=== PATIENT | female | born 1945 | race Caucasian/White ===

== ENCOUNTER 2016-05-05 10:26 | Emergency (ER) | payer OTHER ==
[2016-05-05 10:36] VITALS: BP 135/81; PULSE 63; RESP 17; TEMP 97.9; O2SAT 94
== END 2016-05-05 11:49 | disposition left against medical advice (07) ==
DX: Z53.21 Procedure and treatment not carried out due to patient leaving prior to being seen by health care provider (principal)

== ENCOUNTER → 2016-08-24 | Outpatient (CLI) | payer OTHER | LOC: BMCIMAGING 14:53 | PROVIDERS: ATTEND Internal Medicine | DX: N26.1 Atrophy of kidney (terminal) (principal) ==

== ENCOUNTER 2017-02-08 17:38 | Inpatient (IN) | payer OTHER ==
--- NOTE | 2017-02-08 17:50 | EDPHY ---
H & P Stated Complaint: mental health eval Time Seen by Provider: 02/08/17 17:49 HPI/ROS: CHIEF COMPLAINT: Abnormal behavior HISTORY OF PRESENT ILLNESS: The patient presents to the emergency department with abnormal behavior. She has a history of bipolar mood disorder. She has typically receive medications through her primary care provider Dr. Casandra Lopez. The patient has been off of her medications for several days. According to family members she has been more agitated, slightly confused and has endorse symptoms of insomnia. The patient's has been diagnosed with Parkinson' s disease which is adding some stress to the patient's life as he is in the terminal state of his illness. The patient denies suicidal or homicidal ideation. REVIEW OF SYSTEMS: A comprehensive 10 point review of systems is otherwise negative aside from elements mentioned in the history of present illness. Source: Patient Exam Limitations: No limitations - Personal History Current Tetanus Diphtheria and Acellular Pertussis (TDAP): Yes - Medical/Surgical History Hx Asthma: No Hx Chronic Respiratory Disease: No Hx Diabetes: No Hx Cardiac Disease: No Hx Renal Disease: No Hx Cirrhosis: No Hx Alcoholism: No Hx HIV/AIDS: No Hx Splenectomy or Spleen Trauma: No Other PMH: bipolar, gallbladder surgery, ortho surgeries./laminectomy/cervical problems - Social History Smoking Status: Never smoked - Physical Exam Exam: General Appearance: Alert, no distress Eyes: Pupils equal and round no pallor or injection ENT, Mouth: Mucous membranes moist Respiratory: There are no retractions, lungs are clear to auscultation Cardiovascular: Regular rate and rhythm Gastrointestinal: Abdomen is soft and nontender, no masses, bowel sounds normal Neurological: A&O, normal motor function, normal sensory exam, normal cranial nerves Skin: Warm and dry, no rashes Musculoskeletal: Neck is supple nontender Extremities: symmetrical, full range of motion Psychiatric: Alert and oriented x3, cooperative, endorses symptoms of insomnia , denies suicidal or homicidal ideation Constitutional: Initial Vital Signs Temperature (C) 36.9 C 02/08/17 17:45 Heart Rate 67 02/08/17 17:45 Respiratory Rate 16 02/08/17 17:45 Blood Pressure 179/101 H 02/08/17 17:45 O2 Sat (%) 94 02/08/17 17:45 O2 Delivery Mode Room Air Allergies/Adverse Reactions: No Known Allergies Allergy (Verified 05/05/16 10:32) Home Medications: Medication Instructions Recorded DULoxetine 60 mg PO DAILY 02/08/17 Zolpidem Tartrate 10 mg PO HS 02/08/17 traMADol 02/08/17 Medical Decision Making ED Course/Re-evaluation: I spoke with the patient's primary care provider who reviewed the patient's psychiatric medications which include clonazepam 0.5 mg daily p.r.n., gabapentin 2400 mg at bedtime and Seroquel 50 mg once daily. The patient was [id number] of IV Ativan. The patient had screening laboratory studies and urinalysis. I spoke with the patient's primary care provider who informs me the patient called the office quite hysterical today. They attempted to arrange for a welfare check. The patient was medically cleared for psychiatric evaluation. The psychiatric sales clerk supervisor feels that she is presenting with decompensated bipolar mood disorder in the setting of a fairly significant life stressor. She is recommending inpatient psychiatric hospitalization. The patient has been placed on an M1 psychiatric hold by the mental health sales clerk supervisor. The patient will be admitted at the inpatient psychiatric unit here [facility]. I have filled out the EMTALA transfer form. She has been accepted by Dr. Alves. Differential Diagnosis: Differential diagnosis considered includes psychosis, depression, bipolar mood disorder, metabolic abnormality, medication side effect, intoxication, urinary tract infection - Data Points Laboratory Results: Laboratory Results 02/08/17 18:25 02/08/17 18:25 02/08/17 02/08/17 02/08/17 19:15 19:15 18:25 WBC RBC Hgb Hct MCV MCH MCHC RDW Plt Count MPV Neut % (Auto) Lymph % (Auto) Gooding % (Auto) Eos % (Auto) Baso % (Auto) Nucleat RBC Rel Count Absolute Neuts (auto) Absolute Lymphs (auto) Absolute Monos (auto) Absolute Eos (auto) Absolute Basos (auto) Absolute Nucleated RBC Immature Gran % Immature Gran # Sodium 141 mEq/L mEq/L (134-144) Potassium 4.1 mEq/L mEq/L (3.5-5.2) Chloride 103 mEq/L mEq/L (97-110) Carbon Dioxide 24 mEq/l mEq/l (22-31) Anion Gap 14 mEq/L mEq/L (8-16) BUN 17 mg/dL mg/dL (7-23) Creatinine 1.0 mg/dL mg/dL (0.6-1.0) Estimated GFR 55 Glucose 82 mg/dL mg/dL (70-100) Calcium 9.7 mg/dL mg/dL (8.5-10.4) Urine Color YELLOW Urine Appearance CLEAR Urine pH 6.0 (5.0-7.5) Ur Specific [place] 1.017 (1.002-1.030) Urine Protein NEGATIVE (NEGATIVE) Urine Ketones TRACE H (NEGATIVE) Urine Blood NEGATIVE (NEGATIVE) Urine Nitrate NEGATIVE (NEGATIVE) Urine Bilirubin NEGATIVE (NEGATIVE) Urine Urobilinogen 2.0 EU H EU (0.2-1.0) Ur Leukocyte Esterase NEGATIVE (NEGATIVE) Urine Glucose NEGATIVE (NEGATIVE) Urine Opiates Screen NEGATIVE (NEGATIVE) Urine Barbiturates NEGATIVE (NEGATIVE) Ur Phencyclidine Scrn NEGATIVE (NEGATIVE) Ur Amphetamine Screen NEGATIVE (NEGATIVE) U Benzodiazepines Scrn NEGATIVE (NEGATIVE) Urine Cocaine Screen NEGATIVE (NEGATIVE) U Marijuana (THC) Screen NON-NEGATIVE H (NEGATIVE) Ethyl Alcohol < 10 mg/dL mg/dL (0-10) 02/08/17 18:25 WBC 3.06 10^3/uL L 10^3/uL (3.80-9.50) RBC 4.37 10^6/uL 10^6/uL (4.18-5.33) Hgb 14.0 g/dL g/dL (12.6-16.3) Hct 40.2 % % (38.0-47.0) MCV 92.0 fL fL (81.5-99.8) MCH 32.0 pg pg (27.9-34.1) MCHC 34.8 g/dL g/dL (32.4-36.7) RDW 12.6 % % (11.5-15.2) Plt Count 232 10^3/uL 10^3/uL (150-400) MPV 9.3 fL fL (8.7-11.7) Neut % (Auto) 52.9 % % (39.3-74.2) Lymph % (Auto) 35.0 % % (15.0-45.0) Gooding % (Auto) 9.2 % % (4.5-13.0) Eos % (Auto) 1.3 % % (0.6-7.6) Baso % (Auto) 1.3 % % (0.3-1.7) Nucleat RBC Rel Count 0.0 % % (0.0-0.2) Absolute Neuts (auto) 1.62 10^3/uL L 10^3/uL (1.70-6.50) Absolute Lymphs (auto) 1.07 10^3/uL 10^3/uL (1.00-3.00) Absolute Monos (auto) 0.28 10^3/uL L 10^3/uL (0.30-0.80) Absolute Eos (auto) 0.04 10^3/uL 10^3/uL (0.03-0.40) Absolute Basos (auto) 0.04 10^3/uL 10^3/uL (0.02-0.10) Absolute Nucleated RBC 0.00 10^3/uL 10^3/uL (0-0.01) Immature Gran % 0.3 % % (0.0-1.1) Immature Gran # 0.01 10^3/uL 10^3/uL (0.00-0.10) Sodium Potassium Chloride Carbon Dioxide Anion Gap BUN Creatinine Estimated GFR Glucose Calcium Urine Color Urine Appearance Urine pH Ur Specific Bulan Urine Protein Urine Ketones Urine Blood Urine Nitrate Urine Bilirubin Urine Urobilinogen Ur Leukocyte Esterase Urine Glucose Urine Opiates Screen Urine Barbiturates Ur Phencyclidine Scrn Ur Amphetamine Screen U Benzodiazepines Scrn Urine Cocaine Screen U Marijuana (THC) Screen Ethyl Alcohol Medications Given: Discontinued Medications Sodium Chloride (Ns) 1,000 mls @ 0 mls/hr IV EDNOW ONE; Wide Open PRN Reason: Protocol Stop: 02/08/17 18:26 Last Admin: 02/08/17 18:30 Dose: 1,000 mls Lorazepam (Ativan Injection) 1 mg IVP EDNOW ONE Stop: 02/08/17 18:16 Last Admin: 02/08/17 18:30 Dose: 1 mg Departure - Departure Disposition: [facility] IP Clinical Impression: Acute psychosis, Bipolar mood disorder Condition: Fair Referrals: Casandra Lopez MD [Primary Care Provider] - As per Instructions
[2017-02-08] MEDS ORDERED: LORazepam 2 MG/ML INJ IVP ONE (18:15)
[2017-02-08] MEDS ORDERED: NS 1,000 ML IV ONE (18:25)
[2017-02-08 18:38] LABS: PLATELET COUNT 232 10^3/uL (150-400)
[2017-02-09] MEDS ORDERED: LORazepam 0.5 MG TAB PO PRN (02:00)
[2017-02-09] MEDS ORDERED: ACETAMINOPHEN 325 MG TAB PO PRN (02:00)
[2017-02-09] MEDS ORDERED: OLANZapine DISINTEGR 5 MG TAB PO PRN (02:00)
[2017-02-09] MEDS ORDERED: MAGNESIUM HYDROXIDE 30 ML UDCUP PO PRN (02:00)
[2017-02-09] MEDS ORDERED: MAG HYDROX/AL HYDROX/SIMETH 30 ML UDCUP PO PRN (02:00)
[2017-02-09] MEDS ORDERED: NICOTINE POLACRILEX 2 MG GUM B PRN (02:00)
[2017-02-09] MEDS ORDERED: LORazepam 1 MG TAB PO PRN (12:49)
[2017-02-09] MEDS: FOLIC ACID 1 MG TAB PO SCH (13:24)
[2017-02-09] MEDS: MULTIVITAMINS 1 EACH TAB PO SCH (13:24)
[2017-02-09] MEDS: THIAMINE HCL 100 MG TAB PO SCH (13:24)
--- NOTE | 2017-02-09 15:13 | BCON ---
[f rep st] BEHAVIORAL HEALTH CONSULTATION INTERNAL MEDICINE CONSULT DATE OF CONSULTATION: 02/09/2017 REFERRING PHYSICIAN: Juli Alves MD REASON FOR REFERRAL: Medical clearance for inpatient behavioral health stay. HISTORY OF PRESENT ILLNESS: This patient came to the emergency department with family with abnormal behavior. Per family, she had been more agitated, slightly confused, and had insomnia. She was evaluated by the mental health team and was admitted for further psychiatric care. She currently is without any acute complaints. She explains a history of left foot surgeries beginning with a bunionectomy and subsequently she had some kind of tendon release which has left her with a footdrop. She had been very active and used to be a runner, and cannot do that anymore. Additionally, she is stressed with caregiving for her , who has late stage Parkinson disease. PAST MEDICAL HISTORY: 1. Cholecystectomy. 2. Multiple uterine or cervical surgeries. 3. Left foot surgery for bunion and for complications of the initial surgery. 4. Lumbar laminectomy. 5. Depression. 6. Right wrist fracture, status post ORIF. 7. Seizure. 8. Syncope. MEDICATIONS: Prior to admission: 1. Zolpidem. 2. Tramadol. 3. Duloxetine. 4. Gabapentin. 5. Levothyroxine. 6. Quetiapine. ALLERGIES: There are no known drug allergies. SOCIAL HISTORY: She is . She lives with her . She is a nonsmoker. 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 FAMILY HISTORY: Noncontributory. REVIEW OF SYSTEMS: Other than as in HPI, a 10-point review of systems was performed and was negative. PHYSICAL EXAMINATION: VITAL SIGNS: Blood pressure is 102/55, heart rate is 67 , respiratory rate is 15, oxygen saturation is 95% on room air, temperature is 36.8 degrees centigrade. Her weight is 61.2 kg for a body mass index of 21.1. GENERAL: This is a well-nourished, well-developed thin woman, appears older than her chronologic age, cooperative, and in no acute distress. HEENT: Extraocular movements are intact. Pupils are equal, round, reactive to light. Mucous membranes are moist. Dentition is in good condition. NECK: Supple. HEART: Regular rate and rhythm with no murmurs, rubs, or gallops. LUNGS: Clear to auscultation bilaterally. ABDOMEN: Benign. EXTREMITIES: There is no cyanosis, clubbing, or edema. Her left foot exhibits lack of dorsiflexion of the great toe, and she has old healed surgical incision over the 1st metatarsal. NEUROLOGIC: She is alert and oriented x3. She is markedly hypophonic. There is no focal weakness. Sensation is intact to light touch. There is no bradykinesia or tremor. Gait is within normal limits. LABORATORY STUDIES: Drawn in the emergency department: CBC showed a somewhat low white blood cell count with a slight deficit to absolute neutrophils and absolute monocytes; otherwise, CBC was within normal limits. Serum chemistry revealed normal renal function and electrolytes. Liver function tests revealed a slightly elevated AST at 47, ALT was normal. TSH was normal at 4.46. Urinalysis was positive for ketones, and urobilinogen. Toxicology screen in the serum was negative for ethyl alcohol, and in the urine was non-negative for marijuana but negative for other substances of abuse. ASSESSMENT/RECOMMENDATIONS: 1. Mental health issues, pending further evaluation and management per Psychiatry and the mental health team. 2. Falls and left footdrop. Unclear what can be done for her. She reports that she was getting outpatient physical therapy with history of right wrist fracture. The wrist fracture raises question of osteoporosis in a thin, elderly woman; however, she has had a bone density survey done in 2014 which ruled out osteoporosis. Discussed the possibility of getting physical therapy regarding falls while she is in the inpatient behavioral health unit and she declined the offer, and hopes to be discharged in just a few days. 3. Leukopenia, unclear etiology. This is a mild deficit. She is not at increased infectious risk. The etiology is unclear. With urinary ketones, one might wonder if she has had some nutritional risk. However, she has not had weight loss. Advise follow up with primary care after discharge. 4. She was quite hypophonic and reticent to answer some questions regarding her medical and surgical history. Would consider further discussion including regarding the indications for medications, particularly baclofen and gabapentin should her psychiatric state improve, and and if she were more amenable to further conversation. I see no medical contraindications to this patient's continued stay in the inpatient behavioral health unit or to any psychiatric medications or procedures. Thank you very much for including me in the care of this patient. Please do not hesitate to contact me or the hospitalist service should there be need for further medical evaluation. /[id number]/MODL MTDD
[2017-02-09] MEDS: GABAPENTIN 300 MG CAP PO SCH ×2 (15:28→19:10)
--- NOTE | 2017-02-09 17:08 | BAPA ---
[f rep st] ADMISSION PSYCHIATRIC ASSESSMENT IDENTIFICATION: This is a 71-year-old white female who lives with her . Her apparently is disabled by Parkinson disease. The patient' s son Blanco lives in the [place] area. The patient is not currently in any outpatient mental health treatment. CHIEF COMPLAINT: "I slept better last night." "I didn't sleep or eat for a week " HISTORY OF PRESENT ILLNESS: The patient is a poor historian, with tangential and rambling speech and loose associations. She makes odd statements about her hospitalization as related to her granddaughter visiting but is unable to explain where her granddaughter is and later reports her granddaughter is in [place], and then reports that the granddaughter was visiting [place]. She then reports that she had been drinking alcohol, 3-4 drinks a night, and been using cannabis. She also reports that she wanted to go hiking Sunday night in a snowstorm, to climb a mountain, and that led her son to take her to the emergency department. She reports she has not slept or eaten anything for a week. However, after getting IV lorazepam in the emergency room, and a PO dose of lorazepam on the unit last night, she did sleep about 5 hours. She denies any thoughts to hurt herself or others. She denies hallucinations. She denies paranoia. She is unable to explain the names or dosages of her medications, but after further structured questioning, is able to report that she may or may not be prescribed several medications, including duloxetine, zolpidem, clonazepam, gabapentin, baclofen, Synthroid, trazodone, and Seroquel. She is unable to explain the dosages or frequencies of these medications. The patient is unable to explain why she has not been eating. She endorses anxiety, irritability, agitation, racing thoughts, and reports her current mood is depressed. She reports that she is having difficulty taking care of her and difficulty managing a home care agency that is supposed to help with him. Per the records from the emergency department, the patient was brought to the emergency room by her son, and then the patient was admitted on M1 hold, for grave disability, to the inpatient unit. Per the report, the patient has been acting agitated, disorganized, irritable. I reviewed the patient's recent behavior with the patient's son. The patient signed a release of information for me to talk to him. His phone number is [phone]. The patient's son reports that the patient went on a trip with her sister approximately a week and a half ago. During that trip, the patient's sister reportedly contacted the patient's son, reporting that the patient was having erratic and disorganized behavior, was agitated and verbally abusive to people, and acting strange. The patient's son went to visit the patient per to taking her to the ER. The patient apparently had a coat on, and boots on, and reported that she was going to go hiking at the [facility]. This was in the middle of the night during a snowstorm. The patient also appeared disorganized and bizarre to her son, who took her to the emergency room. The patient's son is in agreement that the patient is gravely disabled, and not at her baseline, and is not functioning appropriately, and is not able to care for her , who is disabled. The patients son reports he is caring for the patients and will remove a gun from their house. PAST PSYCHIATRIC HISTORY: The patient apparently had a psychiatric hospitalization for depression and alcohol abuse at [facility] many years ago. I am unable to obtain or access these records at this time. The patient denies any past suicide attempts or violence toward others. She denies any current outpatient mental health treatment. She reports possibly getting duloxetine, zolpidem, clonazepam, gabapentin, Seroquel and trazodone from her primary care provider but was unable to explain the dosages or frequencies or recent use. The patient reports a history of alcoholism during her 20s, 30s, and 40s. She reports past residential substance abuse treatment. She denies ever having alcohol detoxification or ever having delirium tremens or withdrawal seizures. She reports that she has been drinking alcohol 3-4 drinks nightly and using cannabis. PAST MEDICAL HISTORY: The patient is a poor historian but reports past foot surgery with chronic foot pain and nerve damage and muscle spasms in her foot. The patient reports chronic nerve pain in her foot as well, and possible thyroid disease. She denies any traumatic brain injuries or seizures. Per the records, the patient has a history of a lumbar laminectomy, hypothyroidism, and a cholecystectomy. ALLERGIES: No known drug allergies. FAMILY HISTORY: She reports her mother had bipolar disorder and took [place] and had asthma, and her father was an alcoholic. The patient's son committed suicide in 2004, jumping off a sudheer. SOCIAL HISTORY: She reports that she was raised by her parents. She reports her father was verbally abusive to her and her mother while abusing alcohol. She denies physical or sexual abuse during her childhood. 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 She is . Her is disabled by Parkinson disease. Her son lives in the [facility] and is supportive. She has a 7-year-old granddaughter that lives in [place]. She reports her other son committed suicide in 2004. LABORATORY DATA: White blood cell count 3.0, hemoglobin 14, platelet 232. Basic metabolic panel was normal. UA showed trace ketones, consistent with poor nutrition, and was positive for urobilinogen. Her urine tox screen was positive for cannabis only and no alcohol. PHYSICAL EXAMINATION: VITAL SIGNS: Blood pressure 102/55, heart rate 67, respiratory rate 15, pulse ox 95%. Temperature afebrile. GENERAL: She is alert white female who walks with a limp slowly; she appears disheveled. She appears internally preoccupied. No tremors or abnormal movements. She is dysphoric, tearful, crying at times. Other times she is irritable, angry and yelling. Her voice initially is soft, with few words. Later it is loud and rapid. She describes her mood as "better", but her affect is labile and agitated. Her thoughts are tangential with loose associations and a poverty of detail, poverty of content. Her memory is impaired or poor, with little information. Her insight is poor. Her judgment is impaired. She denies suicidal or violent thoughts, however. She denies auditory hallucinations or paranoia. ASSESSMENT: Bipolar disorder type 1, most recent episode depressed with mixed/manic features. Probable alcohol use disorder, severe. Cannabis use disorder, mild. The overall assessment is this patient has a history of bipolar disorder and has had mixed depressive and manic symptoms. It is not clear if she has consistently been taking psychiatric medications or not, but she has not been receiving outpatient mental health treatment and may have been taking duloxetine in addition to Seroquel, gabapentin, zolpidem, and clonazepam prior to admission. The patient also has been drinking alcohol again. The patient appears gravely disabled, as that she has had impulsive and disorganized behavior in the community, has had impulsive verbal abuse of her sister, and had bizarre ideas to go hiking in a snowstorm to a sudheer, where apparently her son had committed suicide 12 years ago. The patient appears disorganized, is a poor historian. Does not appear to be able to take care of herself or her and reports she hasn't eaten in a week. PLAN: 1. Restart Seroquel at 50 mg p.o. q.h.s. for bipolar disorder; will not restart Duloxetine due to recent severe insomnia and agitation. 2. Restart gabapentin 300 mg p.o. t.i.d. for chronic pain in her foot. 3. Restart baclofen 10 mg p.o. q.h.s. p.r.n. for muscle spasms in her foot. 4. Restart Synthroid 50 mcg daily for history of hypothyroidism. 5. The patient is on a mental health hold. We will file a short-term certification as the patient is unwilling to stay in the hospital on a voluntary basis and appears impulsive and disorganized. 6. We will monitor the patient's p.o. intake on the unit, as she reportedly had not been eating in a week. 7. We will put the patient on a CIWA protocol for either alcohol or benzodiazepine withdrawal, with p.r.n. Ativan 1 mg every 4 hours as needed for CIWA score over 11. Will consider scheduled benzodiazepine if having symptoms of withdrawal over the next 24 hours. 8. Ordered thiamine, folic acid, and multivitamin. 9. Monitor the patient's impulse control behavior, behavior, and judgment on the unit. 10. Ordered olanzapine 5 mg p.o. q.6 hours p.r.n. for severe agitation while on the unit. ADDENDUM: The patient's liver function tests show an AST of 47, ALT 50, and she had a TSH of 4.4. /[id number]/MODL MTDD
[2017-02-09] MEDS: QUEtiapine FUMARATE 50 MG TAB PO SCH (19:10)
[2017-02-09] MEDS: OLANZapine DISINTEGR 5 MG TAB PO PRN (20:37)
[2017-02-10] MEDS: THIAMINE HCL 100 MG TAB PO SCH (09:23)
[2017-02-10] MEDS: FOLIC ACID 1 MG TAB PO SCH (09:24)
[2017-02-10] MEDS: GABAPENTIN 300 MG CAP PO SCH ×3 (09:24→20:46)
[2017-02-10] MEDS: LEVOTHYROXINE 50 MCG TAB PO SCH (09:24)
[2017-02-10] MEDS: MULTIVITAMINS 1 EACH TAB PO SCH (09:24)
--- NOTE | 2017-02-10 13:49 | SOAPPROG ---
SOAP Progress Note Assessment/Plan: Assessment: 71 yo female with h/o bipolar do and alcohol dependence. 02/10/17 13:45 1. Continue on CIWA. Pt scored zero yesterday and 5 this AM, mostly for anxiety. 2. Pt on STC Subjective: Met with patient, reviewed chart and d/w staff. Patient is very frustrated with being in hospital. She says, "I have to take care of my dying ." Patient says, "I'm not doing any better here." She says, "I'm under incredible stress" and "I don't like talking to psychiatrists." She complains that "I"m much older than everybody else here" and feels no one here can "help me." Patient did sleep 7.5 hrs last night, and demonstrates no signs or symptoms of vita or psychosis. She denies any sxs of alcohol or benzo w/d. She denies any SI/HI. Objective: Vital Signs Temp Pulse Resp BP Pulse Ox 36.4 C 86 16 136/87 H 94 02/10/17 05:21 02/10/17 11:04 02/10/17 11:04 02/10/17 11:04 02/10/17 11:04 MSE: Mood: "Stressed" Affect: Depressed, flat TP: Goal-directed TC: Denies any SI/HI, no AH/VH Insight/Judgment: Poor - Time Spent With Patient Time Spent With Patient: 20" - Pending Discharge Pending Discharge Within 24 Hours: No Pending Discharge Within 48 Hours: No ICD10 Worksheet Patient Problems: Problems Problem Status Onset Acute psychosis Acute Alcohol dependence Acute Bipolar mood disorder Acute - ICD10 Problem Qualifiers (1) Alcohol dependence
[2017-02-10] MEDS ORDERED: chlordiazePOXIDE 25 MG CAP PO PRN (13:51)
[2017-02-10] MEDS ORDERED: PROMETHAZINE HCL 25 MG SUPPR PR PRN (13:51)
[2017-02-10] MEDS ORDERED: PROMETHAZINE HCL 25 MG TAB PO PRN (13:51)
[2017-02-10] MEDS: QUEtiapine FUMARATE 50 MG TAB PO SCH (20:46)
[2017-02-11] MEDS: OLANZapine DISINTEGR 5 MG TAB PO PRN ×2 (04:31→22:34)
[2017-02-11] MEDS: IBUPROFEN 200 MG TAB PO PRN ×2 (04:31→22:34)
[2017-02-11] MEDS: THIAMINE HCL 100 MG TAB PO SCH (10:07)
[2017-02-11] MEDS: LEVOTHYROXINE 50 MCG TAB PO SCH (10:07)
[2017-02-11] MEDS: FOLIC ACID 1 MG TAB PO SCH (10:07)
[2017-02-11] MEDS: GABAPENTIN 300 MG CAP PO SCH ×3 (10:07→20:20)
[2017-02-11] MEDS: MULTIVITAMINS 1 EACH TAB PO SCH (10:07)
--- NOTE | 2017-02-11 13:03 | SOAPPROG ---
SOAP Progress Note Assessment/Plan: Assessment: 71 yo female with h/o bipolar do and alcohol dependence. 02/10/17 13:45 1. Continue on CIWA. Pt scored zero yesterday and 5 this AM, mostly for anxiety. 2. Pt on STC 02/11/17 13:00 1. Patient scored 2 on CIWA, but presents with confusion and less coherent and organized today. This raises concern about ETOH/benzo w/d, especially with her persistently elevated BP (187/87 most recent). 2. Will order Librium 25mg Q4h x 4 doses 3. Continue to monitor with CIWA and give additional Librium as needed per CIWA protocol. 4. Will order Clonidine 0.1mg ONCE now and PRN for SBP > 160, or DBP > 100. Subjective: Met with patient and d/w staff. Patient is lying in bed reading a book. She says she is "not feeling good" today, but when MD asks why, she says, "I'm not sure." Patient appears to have word finding problems and is not as organized or coherent as yesterday. When MD asks about the book she is reading, patient says it's about "colors and painting and philosophy." Then she says, "it's about everything and isn't everything about everything." Her CIWA score was 2 this AM , patient denies OSULLIVAN, no diaphoresis, no tremors, no AH/VH or tactile hallucinations. However, her BP has been steadily rising all day, most recent was 187/87. MD is concerned about acute alcohol and/or benzo w/d. Will treat for BP and give 4 doses of Librium in addition to CIWA protocol. It's likely the AMS is related to w/d and will resolve with tx. In this case, patient's odd and erratic behaviors witness by son and daughter this week may be due to THC and ETOH/benzo use rather than bipolar, thought it's still possible both are responsible. Patient denies any SI/HI, no AH/VH. Objective: Vital Signs Temp Pulse Resp BP Pulse Ox 37 C 60 18 187/87 H 95 02/10/17 19:50 02/11/17 12:00 02/11/17 06:03 02/11/17 12:00 02/11/17 12:00 MSE: Affect: Flat Mood: "Not good" TP: Confused, disorganized, nonsensical at times ("everything is about everything") TC: Denies any SI/HI, no AH/VH/TH, no other psychotic sxs, no delusions or grandiosity Insight/Judgement: Poor - Time Spent With Patient Time Spent With Patient: 20" - Pending Discharge Pending Discharge Within 24 Hours: No Pending Discharge Within 48 Hours: No ICD10 Worksheet Patient Problems: Problems Problem Status Onset Acute psychosis Acute Alcohol dependence Acute Bipolar mood disorder Acute - ICD10 Problem Qualifiers (1) Alcohol dependence
[2017-02-11] MEDS: chlordiazePOXIDE 25 MG CAP PO SCH ×3 (13:14→20:19)
[2017-02-11] MEDS: QUEtiapine FUMARATE 50 MG TAB PO SCH (20:20)
[2017-02-11] MEDS ORDERED: ZOLPIDEM TARTRATE 5 MG TAB PO ONE (23:30)
[2017-02-12] MEDS: chlordiazePOXIDE 25 MG CAP PO SCH ×3 (00:06→10:07)
[2017-02-12] MEDS: BACLOFEN 10 MG TAB PO PRN (03:43)
[2017-02-12] MEDS: FOLIC ACID 1 MG TAB PO SCH (07:42)
[2017-02-12] MEDS: MULTIVITAMINS 1 EACH TAB PO SCH (07:42)
[2017-02-12] MEDS: THIAMINE HCL 100 MG TAB PO SCH (07:43)
[2017-02-12] MEDS: GABAPENTIN 300 MG CAP PO SCH ×3 (10:06→20:33)
[2017-02-12] MEDS: LEVOTHYROXINE 50 MCG TAB PO SCH (10:06)
[2017-02-12] MEDS ORDERED: QUEtiapine FUMARATE 50 MG TAB PO PRN (13:17)
[2017-02-12] MEDS ORDERED: QUEtiapine FUMARATE 50 MG TAB PO SCH (13:18)
--- NOTE | 2017-02-12 13:28 | SOAPPROG ---
SOAP Progress Note Assessment/Plan: Assessment: Bipolar Disorder I depressed severe with mixed/manic features Alcohol Use Disorder severe Cannabis Use Disorder mild Alcohol Withdrawal Patient had mixed manic and depressive symptoms over weekend along with confusion and hypertension concerning for alcohol withdrawal. Patient has improved BP today compared to yesterday after receiving Librium 25mg four times. Patient is a much better historian than 02/09/17 but has some residual disorganization Plan: Thiamine, Folic Acid Synthroid for history of hypothyroidism PRN ibuprofen, PRN HS baclofen for foot pain and muscle spasms Continue Gabapentin 300mg TID for chronic foot pain Schedule Lorazepam 0.5mg TID for alcohol withdrawal Start Lorazepam 0.5mg [id number] PRN anxiety Increase Seroquel 100mg QHS for bipolar depression Start Seroquel 50mg [id number] PRN agitation Monitor BP/Vitals Qshift Monitor PO intake, behavior, judgment, cognition 02/12/17 13:31 Subjective: "I am not used to this" Patient is a poor historian due to rambling, tangential speech. Reports she started drinking alcohol again in May due to insomnia. Reports she was taking Seroquel and Duloxetine, unknown doses from PCP after a former psychiatric retired along with Ambien. Unable to explain how much she was drinking prior to admission or how much cannabis she was using. Endorses mood swings and irritability and racing thoughts and difficulty falling asleep at night. Denies visual or auditory hypersensitivity or nausea or paranoia or severe anxiety today. Reports she wants to discharge 'so I can play with my dog.' Unable to explain events leading to hospitalization. Objective: Vital Signs Temp Pulse Resp BP Pulse Ox 36.3 C 64 14 127/73 H 97 02/12/17 12:00 02/12/17 12:00 02/12/17 12:00 02/12/17 12:00 02/12/17 12:00 Alert WF, walks slowly. Appears internally preoccupied at times. Speech soft, RRR but rambling. Thoughts tangential with occasional loose association. Denies SI or HI or AH. Mood 'alright' Affect labile - dysphoric and tearful at times, later euphoric and expansive and laughing. No fixed delusions but poor insight. Memory: reduced regarding recent events. on SLUMS test. Judgment questionable. Staff reports over weekend patient had decreased sleep, disorganized behavior; ate 50-75-100% of meals, paranoid statements, was attempting to grab other patients with pressured speech and provocative and hypersexual behavior, was irritable and briefly yelling when redirected. Patient given four doses of Librium 25mg over past 24 hours, after having severe HTN and disorganization yesterday AM. - Time Spent With Patient Time Spent With Patient: 30min - Pending Discharge Pending Discharge Within 24 Hours: No Pending Discharge Within 48 Hours: No ICD10 Worksheet Patient Problems: Problems Problem Status Onset Acute psychosis Acute Alcohol dependence Acute Bipolar mood disorder Acute
[2017-02-12] MEDS: LORazepam 0.5 MG TAB PO SCH ×2 (16:32→20:33)
[2017-02-13] MEDS: LORazepam 0.5 MG TAB PO PRN ×2 (01:21→21:58)
[2017-02-13] MEDS: GABAPENTIN 300 MG CAP PO SCH ×3 (06:51→20:40)
[2017-02-13] MEDS: MULTIVITAMINS 1 EACH TAB PO SCH (08:37)
[2017-02-13] MEDS: LORazepam 0.5 MG TAB PO SCH ×3 (08:37→20:40)
[2017-02-13] MEDS: THIAMINE HCL 100 MG TAB PO SCH (08:37)
[2017-02-13] MEDS: FOLIC ACID 1 MG TAB PO SCH (08:37)
--- NOTE | 2017-02-13 09:21 | SOAPPROG ---
SOAP Progress Note Assessment/Plan: Assessment: Bipolar Disorder I depressed severe with mixed/manic features Alcohol Use Disorder severe Cannabis Use Disorder mild Alcohol Withdrawal Patient has improved cognition and BP after starting scheduled benzodiazepine but has variable PO intake. Patient has reduced sleep, tangential thinking, and some mood lability but denies dangerous thoughts. Plan: Thiamine, Folic Acid Synthroid for history of hypothyroidism PRN ibuprofen, PRN HS baclofen for foot pain and muscle spasms Continue Gabapentin 300mg TID for chronic foot pain Continue Lorazepam 0.5mg TID for alcohol withdrawal Discontinue CIWA, check vitals TID Continue Lorazepam 0.5mg [id number] PRN anxiety Provided education about bipolar disorder Increase Seroquel 150mg QHS for bipolar disorder Monitor PO intake, behavior, judgment, cognition Check AM BMP, Ca+, Mag, PO4, HgbA1c 02/13/17 09:18 02/13/17 09:24 Subjective: "I'm alright" Patient reports maybe sleeping 5-6 hours last night. Unable to explain why she was admitted but reports wanting to be discharged in order to be with her . Later reports having multiple daily panic attacks due being overwhelmed with caregiver responsibilities for prior to admit. Endorses having disorganized thinking prior to admit. Denies severe anxiety today, denies nausea or tremors but reports some hypersensitivity to light. Reports she is willing to get MH treatment after discharge. 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 Objective: Vital Signs Temp Pulse Resp BP Pulse Ox 36.6 C 50 L 14 156/70 H 94 02/13/17 04:00 02/13/17 04:00 02/13/17 04:00 02/13/17 04:00 02/13/17 04:00 Alert WF, ambulatory slowly without tremors but mild limping. Speech soft, rapid at times. Mood 'alright' affect euphoric, briefly irritable. Thoughts tangential but mostly organized. Denies SI or HI or AH. Cognition 5/5 orientation, normal clockdrawing. Insight limited/poor. Judgment questionable. Glucometer of 230 was charted on patient incorrectly. Staff report patient slept 5-6 hours, has been labile and irritable at times; ate 25% of meals yesterday. - Time Spent With Patient Time Spent With Patient: 20 - Pending Discharge Pending Discharge Within 24 Hours: No Pending Discharge Within 48 Hours: No ICD10 Worksheet Patient Problems: Problems Problem Status Onset Acute psychosis Acute Alcohol dependence Acute Alcohol withdrawal Acute Bipolar mood disorder Acute
[2017-02-13] MEDS ORDERED: QUEtiapine FUMARATE 50 MG TAB PO SCH (09:28)
[2017-02-13] MEDS: LEVOTHYROXINE 50 MCG TAB PO SCH ×2 (10:19→10:53)
[2017-02-13] MEDS: IBUPROFEN 200 MG TAB PO PRN ×2 (10:53→20:42)
[2017-02-14] MEDS: GABAPENTIN 300 MG CAP PO SCH ×3 (07:51→20:33)
[2017-02-14] MEDS: LORazepam 0.5 MG TAB PO SCH ×2 (07:51→20:33)
[2017-02-14] MEDS: FOLIC ACID 1 MG TAB PO SCH (07:51)
[2017-02-14] MEDS: THIAMINE HCL 100 MG TAB PO SCH (07:51)
[2017-02-14] MEDS: MULTIVITAMINS 1 EACH TAB PO SCH (07:51)
[2017-02-14] MEDS: LEVOTHYROXINE 50 MCG TAB PO SCH (11:00)
[2017-02-14] MEDS ORDERED: QUEtiapine FUMARATE 50 MG TAB PO SCH (11:04)
--- NOTE | 2017-02-14 11:08 | SOAPPROG ---
SOAP Progress Note Assessment/Plan: Assessment: Bipolar Disorder I depressed severe with mixed/manic features Alcohol Use Disorder severe Cannabis Use Disorder mild Alcohol Withdrawal Patient was admitted on M-1 hold for disorganization and mixed mood symptoms Patient had mixed mood symptoms yesterday with some inappropriate behavior and PRN medication use. Patient this AM has mild mood symptoms but denies thoughts to hurt self or others Patient has improved blood pressure and cognition and improved PO intake and improved vital signs. Plan: Continue Thiamine, Folic Acid Continue Synthroid for history of hypothyroidism Continue PRN ibuprofen, PRN HS baclofen for foot pain and muscle spasms Continue Gabapentin 300mg TID for chronic foot pain Reduce Lorazepam 0.5mg BID for alcohol withdrawal, taper for 3 days then stop Continue Lorazepam 0.5mg [id number] PRN anxiety Start Naltrexone 25mg PO QHS for alcohol use disorder. Handout given to patient. Reviewed having a bracelet or wallet card, naltrexone blockade of opioid pain medications including Tramadol, and risk of nausea and hepatitis, and importance of having LFTs rechecked in one month Provided education about bipolar disorder Increase Seroquel 200mg QHS for bipolar disorder OT evaluation to assess thought organization, possible discharge tomorrow if mood/behavior stable 02/14/17 11:11 Subjective: Patient reports feeling upset with the way other people are talking and acting, is fearful a patient that was discharged lived next door to her, and reports feeling anxiety and overwhelmed at times. Reports improved sleep and willing to take Seroquel as a mood stabilizer after discharge. Reports chronic alcohol use prior to admit. Reports she wants to be discharged to be with her but reports feeling overwhelmed with caregiver responsibilities. Denies any violent or suicidal thoughts. Objective: Vital Signs Temp Pulse Resp BP Pulse Ox 36.7 C 62 12 108/72 93 02/14/17 06:20 02/14/17 06:20 02/14/17 06:20 02/14/17 06:20 02/14/17 06:20 Laboratory Results 02/14/17 06:10 Alert WF. Cooperative. Labile affect - tearful and dysphoric at times, other times smiling and explansive. Speech soft RRR. Thoughts organized but tangential at times. Denies SI or HI. Denies AH. Limited insight. Appropriate judgment. Staff report patient slept 8 hours but had Seroquel 50mg PRN yesterday for agitation and irritability and possible paranoia, and Ativan 1mg at 22:00 last night for anxiety and insomnia. Patient ate 50-75% of meals. Staff report patient had hypersexual statements yesterday and required redirection twice from approaching a male staff. BMP, HgbA1c WNL - Time Spent With Patient Time Spent With Patient: 20 - Pending Discharge Pending Discharge Within 24 Hours: Yes Pending Discharge Within 48 Hours: No Pending Discharge Date: 02/15/17 Pending Discharge Time: 11:00 ICD10 Worksheet Patient Problems: Problems Problem Status Onset Alcohol dependence Acute Alcohol withdrawal Acute Bipolar mood disorder Acute Hypothyroidism Acute Neuropathy Acute
[2017-02-14] MEDS: LORazepam 0.5 MG TAB PO PRN (15:07)
[2017-02-14] MEDS ORDERED: NALTREXONE HCL 50 MG TAB PO SCH (18:00)
[2017-02-14] MEDS: IBUPROFEN 200 MG TAB PO PRN (19:07)
[2017-02-15] MEDS: BACLOFEN 10 MG TAB PO PRN (01:19)
[2017-02-15] MEDS: LORazepam 0.5 MG TAB PO PRN (01:58)
[2017-02-15 06:29] VITALS: TEMP 97.4
[2017-02-15] MEDS: GABAPENTIN 300 MG CAP PO SCH (09:42)
[2017-02-15] MEDS: LORazepam 0.5 MG TAB PO SCH (09:42)
[2017-02-15] MEDS: THIAMINE HCL 100 MG TAB PO SCH (09:42)
[2017-02-15] MEDS: FOLIC ACID 1 MG TAB PO SCH (09:42)
[2017-02-15] MEDS: MULTIVITAMINS 1 EACH TAB PO SCH (09:42)
[2017-02-15] MEDS: LEVOTHYROXINE 50 MCG TAB PO SCH (11:06)
[2017-02-15 13:02] VITALS: BP 159/81; PULSE 58; RESP 12; O2SAT 96
--- NOTE | 2017-02-15 14:30 | BDS ---
[f rep st] BEHAVIORAL HEALTH DISCHARGE SUMMARY ADMITTING DIAGNOSES: Bipolar disorder type 1, most recent episode depressed with mixed and manic features, alcohol use disorder, and cannabis use disorder. IDENTIFICATION: This is a 71-year-old , white female who lives with her . Her is disabled by Parkinson disease and they have a home health agency who helps care for him. 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 Patients son Blanco lives in the area. Patients other son committed suicide in 2004. BRIEF PSYCHIATRIC HISTORY: The patient reports that she has had severe mood swings and mood instability since adolescence. She has had treatment for bipolar disorder and alcohol abuse for many years. She had 1 prior hospitalization here at [facility] several years ago. She has a history of residential substance abuse treatment for alcoholism in the past. She denies prior suicide attempts or violence toward others. She was not in any current outpatient mental health treatment prior to admission, but had been getting outpatient psychiatric treatment up until a year ago. She reported taking duloxetine, zolpidem, clonazepam, gabapentin, Seroquel, and trazodone from her primary care provider. BRIEF MEDICAL HISTORY: The patient has a history of left foot surgery with chronic foot pain in her left foot as well as muscle spasms and neuropathic pain in her left foot. She also has a history of hypothyroidism. She denied any history of traumatic brain injuries or seizures. She has a history of a lumbar laminectomy and a cholecystectomy. REASON FOR ADMISSION: The patient was taken to the emergency room by her son, Blanco. The patient apparently 2 weeks prior to admission had gone on a trip with her sister and apparently was acting disorganized, agitated, and was profane and irritable. After returning from the trip, the patient was acting disorganized, was not sleeping for a week, was not eating, and apparently during a snowstorm in the middle of the night, putting on a jacket and boots and claiming that she was going to go hike a mountain. The patient when she was admitted was an alert, white female with very tangential thinking. Her speech was soft voice but rapid at times. She walked slowly limping on her left foot. Her thoughts were disorganized and tangential. She denied violent or suicidal thoughts, but reported she felt hopeless, and she was attempting to climb up to the sudheer that her son had committed suicide on in the middle of the night. The patient was a poor historian. She denied auditory hallucinations or paranoia, but had poor insight and impaired judgment. HOSPITAL COURSE: The patient was admitted to the inpatient unit and had mixed manic and depressive symptoms. Her duloxetine was discontinued as was her low dose clonazepam and zolpidem. Her Seroquel was initially restarted at 50mg PO QHS and her gabapentin for neuropathic pain in her foot was restarted 300mg PO TID; her baclofen was restarted 10mg QHS PRN foot muscle spasm; her synthroid was restarted as well. The patient admitted using cannabis and drinking alcohol 2-3 drinks or more nightly for the past year. The patient was put on the [facility] protocol to monitor for alcohol withdrawal. She was started on thiamine and folic acid and multivitamin. The patient had hypertension and confusion and worsening disorganization concerning for alcohol or sedative withdrawal. She was started on Librium, received 25 mg of Librium 4 times, and then was transitioned to scheduled lorazepam, which was then slowly tapered. The patient's blood pressure improved. Her cognition improved. The patient was titrated up on her Seroquel for mixed manic and depressive symptoms up to 200 mg. The patient tolerated the slow increase in Seroquel up to 200 without any side effects. Her mood became more stable and her thinking was less tangential and more organized. The patient initially had extreme mood lability on the unit. She would laugh and cry within a matter of minutes. She would make disorganized and rambling statements. She had hypersexual behavior at times with male peers and was placed on inappropriate sexual behavior precautions. She at other times would make grandiose statements and would have tangential and rambling speech. She initially had severe insomnia and slept very little and made brief paranoid statements regarding the behavior and intentions of staff and other residents. With the titration of the Seroquel, she had improved sleep and remission of paranoia. She initially had poor PO intake the first 48 hours on the unit but was eating 75% of meals consistently prior to discharge. The patient was agreeable to start naltrexone for alcohol cravings. She was given a handout on this medication. We reviewed the risks of hepatitis, nausea , and risk of blockade of opiate medications including tramadol and prescription opiates. The patient tolerated the 25 mg of naltrexone without side effects. She was given counseling about having her liver functions checked in a month. The patient had borderline mild cognitive impairment on the unit. She scored 24 /30 on a SLUMS test 3 days prior to discharge. She had a speech therapy evaluation of her cognition on the day of discharge. She scored 25/30 on the Kaden Cognitive Assessment Test. Both tests showed that she had short-term memory problems that were very mild. The speech therapist also reported mild problem-solving impairment. 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 This letter was reviewed with the patient's son on the day of discharge regarding the recommendations that she receive support after discharge. The patients son reported he would assist with medication monitoring and help patient attend mental health appointments after discharge. He reported that he would review the letter with the [facility] that helps care for the patients . Upon discharge, the patient's discharge medication list was faxed with the patient's permission to Dr. Casandra Lopez, phone #[phone], fax #[phone]. Overall, the patient on the unit had a marked improvement with improved mood stability, improved sleep, improved thought organization, and improved insight and better judgment. She was agreeable to attend outpatient mental health treatment after discharge. She was thin, ambulatory slowly with limping on her left foot, wearing glasses. Euthymic affect, reported her mood as 'good.' Her thoughts are organized with good detail. She denies suicidal or homicidal ideation. Denies paranoia or AH. Memory intact to full date and location and recent events but limited detail. Fair insight, appropriate judgment. LABS: The patient had a white blood cell count of 3.0, hemoglobin 14, platelet count 232. Her BMP was normal with a creatinine of 1.0, glucose 82, hemoglobin A1c 5.4, calcium 9.7, AST 47, ALT 50, TSH 4.4. Her urinalysis was positive for trace ketones when she was admitted as well as urobilinogen. The urine drug screen was positive for cannabis only. CONSULTATIONS: Patient was seen by hospitalist for baseline physical exam on the unit. Patient had OT and speech therapy consults. DISCHARGE DIAGNOSES: Bipolar disorder type 1, most recent episode depressed, severe with mixed manic features; alcohol use disorder, severe; cannabis use disorder, mild; alcohol withdrawal. DISCHARGE MEDICATIONS: Baclofen 10 mg p.o. q.h.s. p.r.n. for muscle spasm in left foot, folic acid 1 mg p.o. q. day, gabapentin 300 mg p.o. t.i.d., ibuprofen 400 mg p.o. q.6 hours p.r.n. pain, Synthroid 50 mcg p.o. daily, lorazepam 0.5 mg p.o. b.i.d. for 5 doses then stop - taper for alcohol withdrawal; multivitamin 1 tablet p.o. q. day, naltrexone 25 mg p.o. q.h.s., Seroquel 200 mg p.o. q.h.s., thiamine 100 mg p.o. q. day. DISPOSITION: The patient is being taken home by her son. FOLLOWUP: The patient has a primary care appointment with Dr. Casandra Lopez at [facility]. She has an appointment tomorrow, February 16, at [facility] for an intake for mental health followup. LEGAL STATUS: The patient was admitted on M1 hold for grave disability. She was then placed on short-term certification for grave disability. This will be terminated when the patient is discharged so she can get outpatient followup on a voluntary basis. /[id number]/MODL MTDD
== END 2017-02-15 13:35 | disposition home or self-care (01) | DRG 885 ==
LOC: BBEH 02-09 01:45
PROVIDERS: ADMIT Psychiatry & Neurology Behavioral Neurology & Neuropsychiatry; ATTEND Psychiatry & Neurology Behavioral Neurology & Neuropsychiatry
DX: F31.5 Bipolar disorder, current episode depressed, severe, with psychotic features (principal); F10.239 Alcohol dependence with withdrawal, unspecified; F12.90 Cannabis use, unspecified, uncomplicated; T43.506A Underdosing of unspecified antipsychotics and neuroleptics, initial encounter; M21.372 Foot drop, left foot; R29.6 Repeated falls; E03.9 Hypothyroidism, unspecified
CPT/HCPCS: 80305; 92523-GN; 96374; 97165-GO; 97530-GO; G0480; G8987-GO-CI; G8988-GO-CI; G8989-GO-CI; G9168-GO-CI; G9169-GN-CI; G9170-GN-CI; J2060

== ENCOUNTER 2017-03-09 19:27 | Emergency (ER) | payer OTHER ==
[2017-03-09 19:37] VITALS: BP 158/96; RESP 16; TEMP 98.4; O2SAT 94
[2017-03-09] MEDS ORDERED: IBUPROFEN 600 MG TAB PO ONE (19:37)
--- NOTE | 2017-03-09 19:58 | EDPHY ---
General Narrative: CHIEF COMPLAINT: Left toe injury HISTORY OF PRESENT ILLNESS: Patient complains of left toe pain. She accidentally stubbed the toe around 5: 00 p.m.. She was walking barefoot the grass when it stabbed up underneath the foot. Significantly painful. Radiates up into the MTP joint on the same foot. Minimal pain surrounding and no pain in the left midfoot, ankle or calcaneus. No pain left knee. No fall or trauma elsewhere. No other associated complaints or modifying factors. ESTABLISHED ORTHOPEDIST: Dr. Hernandez REVIEW OF SYSTEMS: Ten systems reviewed and are negative unless otherwise noted in the HPI PAST MEDICAL HISTORY: Bipolar disorder PAST SURGICAL HISTORY: Left foot surgical removal of foreign body SOCIAL HISTORY: Nonsmoker. Occasional alcohol. No drug use. FAMILY HISTORY: Noncontributory EXAMINATION General Appearance: Alert, no distress Cardiovascular: Pulses normal throughout. Symmetric DP pulse 2 +. Symmetric PT pulses 2+. Brisk cap refill Neurological: A&O, sensory symmetric, normal proprioception left great toe. No footdrop Skin: Warm and dry, no rash. Superficial abrasion to the top of the left toe, just proximal to the lunula. No laceration. Moderate ecchymosis of the left great toe Extremities: Tenderness of left great toe and left 1st MTP. No tenderness of the remaining toes. No tenderness of the left midfoot. No tenderness of left ankle or calcaneus. Range of motion is intact but painful. She has baseline stiffness of the left toe due to surgical intervention. Psychiatric: Mood and affect normal DIFFERENTIAL DIAGNOSES: Including but not limited to fracture, sprain, strain, Turf toe, abrasion, hematoma MDM: 7:35 p.m. Likely fracture left great toe. No laceration. No injury to the mid foot, ankle or heel ipsilateral. X-ray of the toe has been ordered her request. 7:55 p.m. X-ray as reviewed by me without the radiologist reveals a fracture of the distal phalanx. There is also hardware in place seems to be intact. She does have chronic abnormalities of the foot that match her history. No dislocation. No significant displacement. I will place her in a postoperative shoe. She will follow up with her established physician Dr. Hernandez. Anti-inflammatories discussed. Ice and elevation discussed. ED precautions discussed. She is comfortable with this plan and discharged home stable condition. ED Precautions: Worsening pain. Erythema, edema, cyanosis, pallor, paresthesia or anesthesia. - Diagnostics Imaging Results: Imaging Impressions Toe X-Ray 03/09/17 19:35 Impression: Fracture of the distal phalanx of the left 1st toe. See above report for additional findings. - History Smoking Status: Never smoked - Objective Vital Signs: Initial Vital Signs Temperature (C) 98.4 F 03/09/17 19:32 Heart Rate 62 03/09/17 19:32 Respiratory Rate 16 03/09/17 19:32 Blood Pressure 158/96 H 03/09/17 19:32 O2 Sat (%) 94 03/09/17 19:32 O2 Delivery Mode Room Air Allergies/Adverse Reactions: No Known Allergies Allergy (Verified 05/05/16 10:32) Home Medications: Medication Instructions Recorded Baclofen [Baclofen 10 mg (*)] 10 mg PO HS PRN #30 tab 02/15/17 Folic Acid [Folic Acid 1 MG (*)] 1 mg PO DAILY #30 tab 02/15/17 Gabapentin [Neurontin 300 MG (*)] 300 mg PO TID #90 cap 02/15/17 Ibuprofen [Motrin (*)] 400 mg PO Q6HRS PRN tab 02/15/17 LORazepam [Ativan (*)] 0.5 mg PO BID #5 tab 02/15/17 Levothyroxine [Synthroid 50 mcg 50 mcg PO DAILY10 #30 tab 02/15/17 (*)] Multivitamins [Multivitamin (*)] 1 each PO DAILY tab 02/15/17 Naltrexone HCl [Revia] 25 mg PO HS 30 Days tab 02/15/17 QUEtiapine FUMARATE [Seroquel 50 200 mg PO HS #30 tab 02/15/17 mg (*)] Thiamine HCl [Vitamin B-1] 100 mg PO DAILY #30 tab 02/15/17 Medications Given: Discontinued Medications Ibuprofen (Motrin) 600 mg PO EDNOW ONE Stop: 03/09/17 19:38 Last Admin: 03/09/17 19:49 Dose: 600 mg Departure - Departure Disposition: Home, Routine, Self-Care Clinical Impression: Fracture of left great toe Qualifiers: Encounter type: initial encounter Fracture type: closed Phalanx: distal Fracture alignment: nondisplaced Qualified Code(s): S92.425A - Nondisplaced fracture of distal phalanx of left great toe, initial encounter for closed fracture Condition: Good Instructions: Toe Fracture (ED) Additional Instructions: 1. Postop shoe as discussed. 2. Contact her established orthopedist on Sunday for outpatient follow-up 3. ED precautions as discussed 4. Ice, elevation anti-inflammatories as discussed as needed Referrals: Ariel Hernandez MD [Medical Doctor] - As per Instructions
[2017-03-09 20:09] VITALS: PULSE 82
== END 2017-03-09 20:10 | disposition home or self-care (01) ==
DX: S92.425A Nondisplaced fracture of distal phalanx of left great toe, initial encounter for closed fracture (principal); W22.8XXA Striking against or struck by other objects, initial encounter; Y93.01 Activity, walking, marching and hiking

== ENCOUNTER 2017-06-16 09:45 | Observation (INO) | payer OTHER ==
[2017-06-16] MEDS ORDERED: PANTOPRAZOLE SODIUM 40 MG VIAL IVP ONE (10:12)
--- NOTE | 2017-06-16 10:12 | EDPHY ---
H & P Stated Complaint: throat pain, vomiting dark liquid - Personal History Current Tetanus/Diphtheria Vaccine: Unsure Current Tetanus Diphtheria and Acellular Pertussis (TDAP): Unsure - Medical/Surgical History Hx Asthma: No Hx Chronic Respiratory Disease: No Hx Diabetes: No Hx Cardiac Disease: No Hx Renal Disease: Yes Hx Cirrhosis: No Hx Alcoholism: No Hx HIV/AIDS: No Hx Splenectomy or Spleen Trauma: No Other PMH: bipolar, gallbladder surgery, ortho surgeries./laminectomy/cervical problems - Social History Smoking Status: Never smoked <Eryn Rashid Blossom - Last Filed: 06/16/17 10:56> <Karson Bran - Last Filed: 06/16/17 19:41> Time Seen by Provider: 06/16/17 09:57 HPI/ROS: CHIEF COMPLAINT: "I think I threw up blood" HISTORY OF PRESENT ILLNESS: 71-year-old female history of bipolar disorder, alcohol use disorder, states that she awoke this morning with a "raspy throat" and had black emesis the on her bed sheets, epigastric pain Positive alcohol use last evening.. No bowel movement yet today. No melena or hematochezia yesterday. No back or flank pain. No lightheadedness. No unusual ecchymosis. REVIEW OF SYSTEMS: A ten point review of systems was performed and is negative with the exception of the items mentioned in the HPI PAST MEDICAL & SURGICAL HISTORY: Bipolar disorder. Alcohol use disorder. SOCIAL HISTORY:Most recent alcohol use last evening PHYSICAL EXAM (Prior to examination, patient consented to physical exam, hands were washed and my usual and customary physical exam procedures followed) 1) GENERAL: Well-developed, well-nourished, alert and oriented. Appears to be in no acute distress. 2) HEAD: Normocephalic, atraumatic 3) HEENT: Pupils equal, round, reactive to light bilaterally. Sclera anicteric. No raccoon eyes, no Benton sign. Nasopharynx, oropharynx, clear, no lesions. No visible areas of bleeding or trauma. Patient is a sample of her emesis which is black. 4) NECK: Full range of motion, no meningeal signs. 5) LUNGS: Clear auscultation bilaterally, no wheezes, no rhonchi, no retractions. 6) HEART: Regular rate and rhythm, no murmur, no heave, no gallop. 7) ABDOMEN: No guarding, tender to palpation epigastrium, negative McBurney's, negative Cantu's, negative Rovsing's, negative peritoneal sign, 8) MUSCULOSKELETAL: Moving all extremities, no focal areas of tenderness, no obvious trauma. No peripheral edema or discoloration. 9) BACK: No CVA tenderness, no midline vertebral tenderness, no fluctuance, no step-off, no obvious trauma, no visual or palpable abnormality. 10) SKIN: No rash, no petechiae. 11) RECTAL (with nurse Aquilino at bedside): Brown stool on glove DIFFERENTIAL DIAGNOSIS: In no particular include but limited to acute pancreatitis, esophageal varices, upper GI bleed, aspiration pneumonia (Eryn Rashid) Constitutional: Initial Vital Signs Temperature (C) 37.4 C 06/16/17 09:52 Heart Rate 73 06/16/17 09:52 Respiratory Rate 16 06/16/17 09:52 Blood Pressure 140/73 H 06/16/17 09:52 O2 Sat (%) 88 L 06/16/17 09:52 O2 Delivery Mode Room Air O2 (L/minute) 2 Allergies/Adverse Reactions: No Known Allergies Allergy (Verified 06/16/17 09:51) Home Medications: Medication Instructions Recorded Baclofen [Baclofen 10 mg (*)] 10 mg PO HS PRN 06/16/17 Duloxetine HCl [Cymbalta] 60 mg PO DAILY 06/16/17 Folic Acid [Folic Acid 1 MG (*)] 1 mg PO DAILY 06/16/17 Gabapentin [Neurontin 300 MG (*)] 300 mg PO TID 06/16/17 Levothyroxine [Synthroid 50 mcg 50 mcg PO DAILY06 06/16/17 (*)] Multivitamins [Multivitamin (*)] 1 each PO DAILY 06/16/17 Naltrexone HCl [Revia 50mg (RX)] 50 mg PO HS 06/16/17 QUEtiapine FUMARATE [Seroquel 200 200 mg PO HS 06/16/17 mg (*)] Zolpidem Tartrate [Ambien 5MG (*)] 10 mg PO HS 06/16/17 clonazePAM [Klonopin (*)] 0.5 mg PO DAILY 06/16/17 Medical Decision Making <Eryn Rashid - Last Filed: 06/16/17 10:56> Consult/Admit Bed Type: [facility] 1130 <Karson Bran - Last Filed: 06/16/17 19:41> - Diagnostics Imaging Results: Imaging Impressions Chest X-Ray 06/16/17 10:12 Impression: 1. Right middle lobe pneumonia. 2. Recommend follow-up until clear. Other Provider: PHYSICIAN DOCUMENTATION: The patient was evaluated and managed by the Physician Pillar Man and myself. I have reviewed the chart and agree with the findings and plan of care as documented. In addition, I examined the patient myself at 1111. History confirmed as awakened with black emesis and she has, not really that short of breath. Physical findings as follows: Slightly decreased breath sounds on the right side. Chest x-ray personally interpreted as right middle lobe infiltrate. Admission for possible aspiration pneumonia with hypoxemia and right middle lobe infiltrate, recent vomiting. Also possible GI bleed. Does not appear to be hemodynamically unstable. No active vomiting in the emergency department. Does not have SIRS criteria in ED. Attila for Bishop at 1107. I am the secondary supervising physician. (Karson Bran) - Data Points Laboratory Results: Laboratory Results 06/16/17 10:23 06/16/17 10:23 06/16/17 06/16/17 06/16/17 11:05 10:23 10:23 WBC RBC Hgb Hct MCV MCH MCHC RDW Plt Count MPV Neut % (Auto) Lymph % (Auto) Glynn % (Auto) Eos % (Auto) Baso % (Auto) Nucleat RBC Rel Count Absolute Neuts (auto) Absolute Lymphs (auto) Absolute Monos (auto) Absolute Eos (auto) Absolute Basos (auto) Absolute Nucleated RBC Immature Gran % Immature Gran # PT INR APTT ABG Lactic Acid 1.2 mmol/L mmol/L (0.5-1.6) Sodium Potassium Chloride Carbon Dioxide Anion Gap BUN Creatinine Estimated GFR Glucose Calcium Total Bilirubin Conjugated Bilirubin Unconjugated Bilirubin AST ALT Alkaline Phosphatase Total Protein Albumin Lipase Stool Occult Bld Scrn NEGATIVE REJ (NEGATIVE) 06/16/17 06/16/17 06/16/17 10:23 10:23 10:23 WBC 7.85 10^3/uL 10^3/uL (3.80-9.50) RBC 4.11 10^6/uL L 10^6/uL (4.18-5.33) Hgb 13.1 g/dL g/dL (12.6-16.3) Hct 37.7 % L % (38.0-47.0) MCV 91.7 fL fL (81.5-99.8) MCH 31.9 pg pg (27.9-34.1) MCHC 34.7 g/dL g/dL (32.4-36.7) RDW 13.0 % % (11.5-15.2) Plt Count 189 10^3/uL 10^3/uL (150-400) MPV 9.3 fL fL (8.7-11.7) Neut % (Auto) 85.5 % H % (39.3-74.2) Lymph % (Auto) 7.8 % L % (15.0-45.0) Glynn % (Auto) 5.9 % % (4.5-13.0) Eos % (Auto) 0.0 % L % (0.6-7.6) Baso % (Auto) 0.4 % % (0.3-1.7) Nucleat RBC Rel Count 0.0 % % (0.0-0.2) Absolute Neuts (auto) 6.72 10^3/uL H 10^3/uL (1.70-6.50) Absolute Lymphs (auto) 0.61 10^3/uL L 10^3/uL (1.00-3.00) Absolute Monos (auto) 0.46 10^3/uL 10^3/uL (0.30-0.80) Absolute Eos (auto) 0.00 10^3/uL L 10^3/uL (0.03-0.40) Absolute Basos (auto) 0.03 10^3/uL 10^3/uL (0.02-0.10) Absolute Nucleated RBC 0.00 10^3/uL 10^3/uL (0-0.01) Immature Gran % 0.4 % % (0.0-1.1) Immature Gran # 0.03 10^3/uL 10^3/uL (0.00-0.10) PT 12.8 SEC SEC (12.0-15.0) INR 0.94 (0.83-1.16) APTT 23.4 SEC SEC (23.0-38.0) ABG Lactic Acid Sodium 135 mEq/L mEq/L (135-145) Potassium 3.4 mEq/L L mEq/L (3.5-5.2) Chloride 92 mEq/L L mEq/L (97-110) Carbon Dioxide 32 mEq/l H mEq/l (22-31) Anion Gap 11 mEq/L mEq/L (8-16) BUN 24 mg/dL H mg/dL (7-23) Creatinine 1.0 mg/dL mg/dL (0.6-1.0) Estimated GFR 55 Glucose 111 mg/dL H mg/dL (70-100) Calcium 8.9 mg/dL mg/dL (8.5-10.4) Total Bilirubin 0.9 mg/dL mg/dL (0.1-1.4) Conjugated Bilirubin 0.2 mg/dL mg/dL (0.0-0.5) Unconjugated Bilirubin 0.7 mg/dL mg/dL (0.0-1.1) AST 39 IU/L IU/L (14-46) ALT 39 IU/L IU/L (9-52) Alkaline Phosphatase 105 IU/L IU/L (38-126) Total Protein 7.5 g/dL g/dL (6.3-8.2) Albumin 4.3 g/dL g/dL (3.5-5.0) Lipase 84 IU/L IU/L (23-300) Stool Occult Bld Scrn 06/16/17 10:15 WBC RBC Hgb Hct MCV MCH MCHC RDW Plt Count MPV Neut % (Auto) Lymph % (Auto) Glynn % (Auto) Eos % (Auto) Baso % (Auto) Nucleat RBC Rel Count Absolute Neuts (auto) Absolute Lymphs (auto) Absolute Monos (auto) Absolute Eos (auto) Absolute Basos (auto) Absolute Nucleated RBC Immature Gran % Immature Gran # PT INR APTT ABG Lactic Acid Sodium Potassium Chloride Carbon Dioxide Anion Gap BUN Creatinine Estimated GFR Glucose Calcium Total Bilirubin 0.9 mg/dL mg/dL (0.1-1.4) Conjugated Bilirubin Unconjugated Bilirubin AST ALT Alkaline Phosphatase Total Protein Albumin Lipase Stool Occult Bld Scrn Medications Given: Gabapentin (Neurontin) 300 mg PO TID TOÑA Stop: 12/13/17 15:59 Last Admin: 06/16/17 18:31 Dose: 300 mg Sodium Chloride (Ns) 1,000 mls @ 100 mls/hr IV CONT TOÑA Stop: 12/13/17 14:44 Last Admin: 06/16/17 18:39 Dose: 1,000 mls Discontinued Medications Ertapenem (Invanz) 1 gm IV EDNOW ONE PRN Reason: Protocol Stop: 06/16/17 10:56 Last Admin: 06/16/17 11:09 Dose: 1 gm Sodium Chloride (Ns) 1,000 mls @ 0 mls/hr IV ONCE ONE PRN Reason: Wide Open Stop: 06/16/17 10:53 Last Admin: 06/16/17 11:00 Dose: 1,000 mls Pantoprazole Sodium (Protonix) 40 mg IVP EDNOW ONE Stop: 06/16/17 10:13 Last Admin: 06/16/17 10:33 Dose: 40 mg Departure <Eryn Rashid - Last Filed: 06/16/17 10:56> <Karson Bran - Last Filed: 06/16/17 19:41> - Departure Disposition: [facility] Acute Clinical Impression: Hypoxemia Pneumonia Qualifiers: Pneumonia type: aspiration pneumonia Aspiration pneumonia type: due to vomit Laterality: right Lung location: middle lobe of lung Qualified Code(s): J69.0 - Pneumonitis due to inhalation of food and vomit GI bleed Qualifiers: GI bleed type/associated pathology: gastritis Gastritis type: alcoholic Qualified Code(s): K29.21 - Alcoholic gastritis with bleeding Condition: Fair
[2017-06-16 10:31] LABS: PLATELET COUNT 189 10^3/uL (150-400)
[2017-06-16 10:46] LABS: INR 0.94 (0.83-1.16); PROTIME(PATIENT) 12.8 SEC (12.0-15.0)
[2017-06-16] MEDS ORDERED: NS 1,000 ML IV ONE (10:52)
[2017-06-16] MEDS ORDERED: ERTAPENEM 1 GM VIAL IV ONE (10:55)
--- NOTE | 2017-06-16 11:02 | CPEKG ---
Heart Rate: 68 RR Interval: 882 P-R Interval: 152 QRSD Interval: 100 QT Interval: 424 QTC Interval: 451 P Olean: 30 QRS [place]an: 62 T Wave [place]: 6 EKG Severity - NORMAL ECG - EKG Impression: SINUS RHYTHM Electronically Signed By: Karson Bran 16-Jun-2017 11:03:36
--- NOTE | 2017-06-16 11:42 | ASMTLACE ---
MYRANDA Acuity / Level of Answers: Yes Care: Did the patient have an inpatient admission? # of Emergency department Answers: 1-2 visits in the last 6 months Social determinants Answers: History of substance abuse (ETOH, street drugs, prescription drugs, etc.) Score: 7 Date Signed: 06/16/2017 11:41 AM Electronically Signed By:Estrella Hernández RN
[2017-06-16] MEDS ORDERED: BACLOFEN 10 MG TAB PO PRN (14:42)
[2017-06-16] MEDS ORDERED: PROMETHAZINE HCL 25 MG/ML INJ IVP PRN (14:44)
[2017-06-16] MEDS ORDERED: ACETAMINOPHEN 325 MG TAB PO PRN (14:44)
[2017-06-16] MEDS ORDERED: HYDROmorphONE/DILAUDID 1 MG/ML INJ IVP PRN (14:44)
[2017-06-16] MEDS ORDERED: ONDANSETRON 4 MG/2 ML VIAL IVP PRN (14:44)
[2017-06-16] MEDS ORDERED: LORazepam 1 MG TAB PO PRN (14:46)
[2017-06-16] MEDS ORDERED: PROTOCOL POTASSIUM 1 DOSE MISC PRN (14:48)
[2017-06-16] MEDS ORDERED: HYDROmorphONE/DILAUDID 2 MG/ML INJ IVP PRN (15:02)
--- NOTE | 2017-06-16 15:08 | GCON ---
[f rep st] CONSULTATION CHIEF COMPLAINT: Hematemesis. REASON FOR CONSULTATION: I am asked to see this patient in consultation by Dr. Bran for chief complaint of coffee-ground emesis. HISTORY OF PRESENT ILLNESS: Patient is a 71-year-old who had an episode of emesis this morning that she describes as dark fluid, but no bright red blood, and developed a very sore/hoarse throat. Presented to the emergency room and has evidence of aspiration pneumonia. She states she has never had history of GI bleeding before. No known peptic ulcer disease. Takes occasional NSAIDs. Denies GERD symptoms at this time and no dysphagia. No diarrhea. Occasional constipation. Has seen no blood in her stools or melena. She states she does drink alcohol but is evasive in telling me how much. Per history, she does have history of alcohol abuse and alcoholic withdrawal. She states she has never had an upper endoscopy, but did have a colonoscopy 2 years with her primary centerless grinder operator, Dr. Castellanos. ALLERGIES: No known allergies. CURRENT MEDICATIONS: Include Ambien, Cymbalta, Klonopin, Seroquel, ReVia, multivitamin, Synthroid, Neurontin, folic acid, and baclofen. PAST MEDICAL HISTORY: Patient has history of alcohol abuse, history of bipolar disease, history of renal disease, and status post cholecystectomy. SOCIAL HISTORY: Patient uses alcohol. FAMILY HISTORY: Negative for colon cancer or colon polyps. REVIEW OF SYSTEMS: I performed a complete review of systems, which is negative except for the pertinent positives and negatives noted above in the HPI. PHYSICAL EXAMINATION: VITAL SIGNS: She is afebrile at 36.6, BP 135/77, pulse 69. CONSTITUTIONAL: Patient is alert and oriented. No apparent distress. EYES: No scleral icterus. HENT: Patient is hoarse, but I see no pharyngitis. CARDIOVASCULAR: Regular rate and rhythm. CHEST: Clear to auscultation. ABDOMEN: Positive bowel sounds. Soft and nontender. NEUROLOGIC: Grossly nonfocal. SKIN: No lesions. LABORATORY DATA: BUN and creatinine are 24 and 1.0, potassium low at 3.4, sodium 135. LFTs are normal with AST of 39, ALT 39, alk phos 105, albumin 4.3, lipase normal at 84. Coags normal at 12.8 and 0.94. Hematocrit is 37.7 with a normal hemoglobin at 13.1, platelets 189, and white count 7.89. ASSESSMENT: Patient with possible upper gastrointestinal bleed with reports of dark emesis; however, she has no evidence of active GI bleeding now and is hemodynamically stable with essentially normal hematocrit and heme-negative. It is possible that she may have had a slight ooze. Differential diagnosis would include potentially alcoholic gastritis, mild Lorri-Valdes tear, esophagitis, pharyngitis, or peptic ulcer disease. I doubt esophageal varices. At this point, she does not make criteria to require a therapeutic or urgent upper endoscopy, which in fact may be high risk for her given her aspiration pneumonia. At this point, I would not proceed with a diagnostic scope until her pneumonia is improved. PLAN: 1. Recommend PPI IV for now. Okay for clear liquids. Can change to PO PPI once taking PO well. 2. Plan for a diagnostic upper endoscopy once her pneumonia is treated. This can be done as an outpatient with her primary centerless grinder operator, who is Dr. Castellanos. 3. Will sign off for now; however, please call if her condition should change or there is evidence of active GI bleeding; then would reconsider emergent endoscopy. Thanks for this consult. Sincerely, /[id number]/MODL MTDD
--- NOTE | 2017-06-16 16:18 | GHP ---
[f rep st] HISTORY AND PHYSICAL DATE OF ADMISSION: 06/16/2017 CHIEF COMPLAINT: Hematemesis. HISTORY: The patient is a 71-year-old female who woke up this morning and noticed dark blood all ove r her pajamas as if she had vomited in her sleep. She denies any melena or hematochezia. She appear s to not have woken up during the vomiting episode. She also had a new sore throat with a very hoars e, raspy voice, as well as a new nonproductive cough. She did drink some alcohol last night, althoug h she denies heavy use, saying only 2-3 glasses a couple times a week. She has had normal bowel move ments, normal oral intake, and no recent weight loss. PAST MEDICAL HISTORY: 1. Bipolar disorder. 2. Back pain. 3. Alcohol use disorder. PAST SURGICAL HISTORY: Cholecystectomy. MEDICATIONS: Please see computer record for full detailed list. ALLERGIES: No known drug allergies. SOCIAL HISTORY: No smoking. Current alcohol use is 2-3 glasses a couple of times a week, although s he very quickly offers that she would like to cut back down to zero because she knows that alcohol is bad for her. On review of chart records, it looks like she has a longstanding history of alcohol us e disorder, and it has been quite an issue for her. She lives alone. REVIEW OF SYSTEMS: Complete review of systems obtained. Review of systems negative for constitution al, HEENT, GI, pulmonary, cardiovascular, , hematology, skin, musculoskeletal, endocrine, psych, ex cept for positives and negatives as in HPI. FAMILY HISTORY: Reviewed, noncontributory to presenting complaint. PHYSICAL EXAMINATION: GENERAL: Well-developed, well-nourished female, in no acute distress. VITAL SIGNS: Temperature 37.4, pulse 69, blood pressure 138/87, satting 88% room air. EYES: Normal conju nctivae. Pupils equal, react to light. ENT: Normal ears and nose. Hearing intact. Normal lips an d teeth. Oropharynx moist. NECK: Trachea midline. No thyromegaly. CHEST: Normal effort. LUNGS: Clear to auscultation bilaterally. CARDIOVASCULAR: Regular rhythm. No murmur. No extremity esther a. ABDOMEN: Soft, nontender. No hepatosplenomegaly. SKIN: Warm, dry, intact. No rash. MUSCULOS KELETAL: No cyanosis or clubbing. Strength 5/5 upper and lower extremities. NEURO: Cranial nerves intact. Normal sensation to light touch. PSYCHIATRIC: Alert and oriented x3. Normal affect. Nor mal judgment. Normal memory. LABORATORY DATA: White count 7.85, hematocrit 37.7, platelets 189. Sodium 135, potassium 3.4, chlor jonathan 92, bicarb 32, BUN 24, creatinine 1.0, glucose 111. LFTs are negative. Heme negative from below . EKG viewed by me, and my personal interpretation is normal sinus rhythm. No ST-T wave changes. C hest x-ray shows right middle lobe pneumonia. I personally discussed this case with Dr. Elizondo of Gastroenterology, and she is recommending outpatient EGD unless the patient becomes more acute. ASSESSMENT/PLAN: 1. Upper gastrointestinal bleed. This may be an alcohol-induced gastritis versus peptic ulcer disea se. Will follow serial H and H's. Will continue IV proton pump inhibitor. At this point, Gastroent erology is recommending outpatient EGD, which will be reasonable as long she does not destabilize. I think varicocele bleed is unlikely, as she shows no signs of alcohol-induced cirrhosis. 2. Aspiration pneumonia. Will treat with ceftriaxone and Flagyl. 3. Alcohol abuse. Will prescribe thiamine and watch for signs of withdrawal. 4. Bipolar disorder. Continue Seroquel. ADMISSION STATUS: Observation. CODE STATUS: Full. DVT PROPHYLAXIS: SCDs only due to acute bleeding. /[id number]/MODL
[2017-06-16] MEDS: GABAPENTIN 300 MG CAP PO SCH ×2 (18:31→21:10)
[2017-06-16] MEDS: NS 1,000 ML IV SCH (18:39)
[2017-06-16] MEDS ORDERED: POTASSIUM CL 10 MEQ TAB PO ONE (19:42)
[2017-06-16] MEDS ORDERED: NALTREXONE HCL 50 MG TAB PO SCH (21:00)
[2017-06-16] MEDS ORDERED: QUEtiapine FUMARATE 200 MG TAB PO SCH (21:00)
[2017-06-16] MEDS ORDERED: ZOLPIDEM TARTRATE 5 MG TAB PO SCH (21:00)
[2017-06-16] MEDS: PANTOPRAZOLE SODIUM 40 MG VIAL IVP SCH (21:09)
[2017-06-17] MEDS: NS 1,000 ML IV SCH (04:08)
[2017-06-17 04:45] LABS: PLATELET COUNT 157 10^3/uL (150-400)
[2017-06-17] MEDS ORDERED: LEVOTHYROXINE 50 MCG TAB PO SCH (06:00)
[2017-06-17] MEDS ORDERED: clonazePAM 0.5 MG TAB PO SCH (09:00)
[2017-06-17] MEDS ORDERED: DULoxetine 60 MG CAP PO SCH (09:00)
[2017-06-17] MEDS ORDERED: cefTRIAXone 1 GM in STERILE WATER INJ 10 ML IV SCH (09:00)
[2017-06-17] MEDS ORDERED: THIAMINE HCL 500 MG in NS 500 ML IV SCH (09:00)
[2017-06-17] MEDS ORDERED: THIAMINE HCL 100 MG TAB (DAILY X 3) PO SCH (09:00)
[2017-06-17] MEDS ORDERED: FOLIC ACID 1 MG TAB PO SCH (09:00)
[2017-06-17] MEDS ORDERED: POTASSIUM CL 10 MEQ TAB PO ONE (09:23)
[2017-06-17] MEDS: PANTOPRAZOLE SODIUM 40 MG VIAL IVP SCH (10:20)
[2017-06-17] MEDS: GABAPENTIN 300 MG CAP PO SCH ×2 (10:21→16:47)
[2017-06-17 11:43] VITALS: BP 129/60; PULSE 63; RESP 16; TEMP 99.4; O2SAT 86
[2017-06-17] MEDS ORDERED: PNEUMOC 13-VAL CONJ-DIP CRM/PF 0.5 ML SYR IM ONE (16:25)
--- NOTE | 2017-06-18 15:45 | GDS ---
[f rep st] DISCHARGE SUMMARY DISCHARGE DIAGNOSES: 1. Aspiration pneumonia. 2. Depression. 3. Alcohol use. 4. Bipolar disorder. PHYSICAL EXAM: GENERAL: The patient is alert. VITAL SIGNS: Afebrile at 37.4, pulse is 63, respira tory rate 16, blood pressure is 129/60. She is saturating greater than 90% on room air. I have seen and evaluated the patient on the day of discharge. HOSPITAL COURSE: The patient is a 71-year-old female who presented to the hospital after suffering a bout of dark emesis. She was evaluated and diagnosed with: 1. Possible upper gastrointestinal bleed. During this hospitalization, she received a consultation from Gastroenterology. The patient had no further signs of bleeding. She had no further episodes of emesis. She was initiated on a proton pump inhibitor and recommended to follow up in the outpatient setting with Gastroenterology or return to the emergency room if her symptoms should recur. 2. Aspiration pneumonia. I have treated the patient with ceftriaxone and Flagyl during this hospita lization. She has been dispositioned on Augmentin. She is saturating appropriately on room air and will follow with her primary care physician. 3. Alcohol abuse with history of bipolar disorder and depression. She was evaluated by [facility] during this hospitalization. Her home medications have been continued. They have established care with an outpatient psychiatrist and cleared her safe to be discharged home independently. FOLLOWUP: Will be with her primary care physician, Dr. Casandra Lopez, as well as [facility] for further therapy and medical management. DISCHARGE MEDICATIONS: Please refer to EMR form. I have discontinued the patient's Ambien at the ti me of disposition secondary to adverse potential effects. I have provided her a prescription for Aug mentin as well as recommended thiamine use in the outpatient setting. I have discussed the patient's disposition with Case Management, as well as her RN. Again, the angela vega will follow up in the outpatient setting. /[id number]/MODL
[2017-06-19] MEDS ORDERED: THIAMINE HCL 100 MG TAB PO SCH (14:46)
== END 2017-06-17 16:57 | disposition home or self-care (01) ==
LOC: INTOOBSV 11:08 → F3N 13:37
PROVIDERS: ADMIT Hospitalist; ATTEND Internal Medicine
DX: J69.0 Pneumonitis due to inhalation of food and vomit (principal); K92.0 Hematemesis; F31.9 Bipolar disorder, unspecified; F10.10 Alcohol abuse, uncomplicated; R09.02 Hypoxemia; K29.21 Alcoholic gastritis with bleeding; Z23 Encounter for immunization
CPT/HCPCS: 71046; 90670; 93005; 96361; 96374; 96375; 99285; G0009; G0378; J0696; J1335; J3411

== ENCOUNTER 2017-12-30 19:34 | Inpatient (IN) | payer OTHER ==
--- NOTE | 2017-12-30 19:58 | EDPHY ---
H & P - Medical/Surgical History Hx Asthma: No Hx Chronic Respiratory Disease: No Hx Diabetes: No Hx Cardiac Disease: No Hx Renal Disease: Yes Hx Cirrhosis: No Hx Alcoholism: No Hx HIV/AIDS: No Hx Splenectomy or Spleen Trauma: No Other PMH: bipolar, gallbladder surgery, ortho surgeries./laminectomy/cervical problems - Social History Smoking Status: Never smoked Time Seen by Provider: 12/30/17 19:40 Constitutional: Initial Vital Signs Temperature (C) 37 C 12/30/17 20:09 Heart Rate 76 12/30/17 20:09 Respiratory Rate 18 12/30/17 20:09 Blood Pressure 139/97 H 12/30/17 20:09 O2 Sat (%) 92 12/30/17 20:09 O2 Delivery Mode Room Air Allergies/Adverse Reactions: No Known Allergies Allergy (Verified 12/30/17 20:09) Home Medications: Medication Instructions Recorded Baclofen [Baclofen 10 mg (*)] 10 mg PO HS PRN 06/16/17 Duloxetine HCl [Cymbalta] 60 mg PO DAILY 06/16/17 Folic Acid [Folic Acid 1 MG (*)] 1 mg PO DAILY 06/16/17 Gabapentin [Neurontin 300 MG (*)] 300 mg PO TID 06/16/17 Levothyroxine [Synthroid 50 mcg 50 mcg PO DAILY06 06/16/17 (*)] Multivitamins [Multivitamin (*)] 1 each PO DAILY 06/16/17 Naltrexone HCl [Revia] 50 mg PO HS 06/16/17 QUEtiapine FUMARATE [Seroquel 200 200 mg PO HS 06/16/17 mg (*)] clonazePAM [Klonopin (*)] 0.5 mg PO DAILY 06/16/17 Acetaminophen [Tylenol 325mg (*)] 650 mg PO Q4 PRN tab 06/17/17 Amoxicillin/Clavulanate Pot 875 mg PO BID #10 tab 06/17/17 [Augmentin 875 MG TAB (*)] Thiamine HCl [Vitamin B-1] 100 mg PO DAILY tab 06/17/17 Thiamine HCl [Vitamin B-1] 100 mg PO DAILY tab 06/17/17 Medical Decision Making ED Course/Re-evaluation: CHIEF COMPLAINT: Depressed, tearful, suicidal HISTORY OF PRESENT ILLNESS: 72-year-old female who lost her son. She states that she no longer wants to live without her son and she feels suicidal. She has felt like this for quite a long period time. She denies any specific plan. She denies any attempt at suicide this evening. She is cooperative and tearful. REVIEW OF SYSTEMS: A comprehensive 10 system review of systems is otherwise negative aside from elements mentioned in the history of present illness and medical decision making. PHYSICAL EXAM: General Appearance: Alert, well hydrated, appropriate, and non-toxic appearing. Head: Atraumatic without scalp tenderness or obvious injury Eyes: Pupils equal, round, reactive to light and accommodation, EOMI, no trauma , no injection. Ears: Clear bilaterally, no perforation, normal landmarks Nose: Atraumatic, no rhinorrhea, clear. Throat: There is no erythema or exudates, no lesions, normal tonsils, mucus membranes moist. Neck: Supple, 2+ carotid upstroke, nontender, no lymphadenopathy. Respiratory: No retractions, no distress, no wheezes, and no accessory muscle use. Lungs are clear to auscultation bilaterally. Cardiovascular: Regular rate and rhythm, no murmurs, rubs, or gallops. Bilateral carotid, radial, dorsalis pedis, and posterior tibial pulses intact. Good capillary refill all extremities. Gastrointestinal: Abdomen is soft, nontender, non-distended, no masses, no rebound, no guarding, no peritoneal signs. Musculoskeletal: Normal active ROM of all extremities, atraumatic. Neurological: Alert, appropriate, and interactive. The patient has normal DTRs and non-focal cranial nerves, motor, sensory, and cerebellar exam. Skin: No rashes, good turgor, no nodules on palpation. Past medical history: Noncontributory Past surgical history: Noncontributory Family history: Noncontributory Social history: Single, retired, does not abuse tobacco drugs or alcohol DIFFERENTIAL DIAGNOSIS: The differential diagnosis for the patient's depression included but was not limited to functional and major depression, situational depression, medication side effect, drugs, and alcohol abuse. MEDICAL DECISION MAKING: Patient is in no acute distress and is hemodynamically stable. We are awaiting psychiatric team's evaluation. Patient has known history of psychiatric disorders consistent with depression and suicidality and is here for evaluation. (Vega Klein) 1072: Patient has been accepted at [address] [place] [address] Alves. EMTALA filled out. Appropriate Transfer will be set up. (Solo Esquivel) - Data Points Laboratory Results: Laboratory Results 12/30/17 20:00 12/30/17 20:00 12/30/17 12/30/17 12/30/17 20:45 20:00 20:00 WBC 5.34 10^3/uL 10^3/uL (3.80-9.50) RBC 4.01 10^6/uL L 10^6/uL (4.18-5.33) Hgb 12.3 g/dL L g/dL (12.6-16.3) Hct 36.7 % L % (38.0-47.0) MCV 91.5 fL fL (81.5-99.8) MCH 30.7 pg pg (27.9-34.1) MCHC 33.5 g/dL g/dL (32.4-36.7) RDW 13.8 % % (11.5-15.2) Plt Count 263 10^3/uL 10^3/uL (150-400) MPV 9.0 fL fL (8.7-11.7) Neut % (Auto) 69.1 % % (39.3-74.2) Lymph % (Auto) 20.8 % % (15.0-45.0) [place] % (Auto) 7.5 % % (4.5-13.0) Eos % (Auto) 1.5 % % (0.6-7.6) Baso % (Auto) 0.9 % % (0.3-1.7) Nucleat RBC Rel Count 0.0 % % (0.0-0.2) Absolute Neuts (auto) 3.69 10^3/uL 10^3/uL (1.70-6.50) Absolute Lymphs (auto) 1.11 10^3/uL 10^3/uL (1.00-3.00) Absolute Monos (auto) 0.40 10^3/uL 10^3/uL (0.30-0.80) Absolute Eos (auto) 0.08 10^3/uL 10^3/uL (0.03-0.40) Absolute Basos (auto) 0.05 10^3/uL 10^3/uL (0.02-0.10) Absolute Nucleated RBC 0.00 10^3/uL 10^3/uL (0-0.01) Immature Gran % 0.2 % % (0.0-1.1) Immature Gran # 0.01 10^3/uL 10^3/uL (0.00-0.10) Sodium 141 mEq/L mEq/L (135-145) Potassium 3.8 mEq/L mEq/L (3.3-5.0) Chloride 106 mEq/L mEq/L (97-110) Carbon Dioxide 22 mEq/l mEq/l (22-31) Anion Gap 13 mEq/L mEq/L (8-16) BUN 16 mg/dL mg/dL (7-23) Creatinine 1.0 mg/dL mg/dL (0.6-1.0) Estimated GFR 55 Glucose 93 mg/dL mg/dL (70-100) Calcium 9.4 mg/dL mg/dL (8.5-10.4) Salicylates < 1.0 mg/dL L mg/dL (2.0-20.0) Urine Opiates Screen NEGATIVE (NEGATIVE) Acetaminophen < 10 mcg/mL L mcg/mL (10-30) Urine Barbiturates NEGATIVE (NEGATIVE) Ur Phencyclidine Scrn NEGATIVE (NEGATIVE) Ur Amphetamine Screen NEGATIVE (NEGATIVE) U Benzodiazepines Scrn NEGATIVE (NEGATIVE) Urine Cocaine Screen NEGATIVE (NEGATIVE) U Marijuana (THC) Screen NEGATIVE (NEGATIVE) Ethyl Alcohol 26 mg/dL H mg/dL (0-10) Departure - Departure Clinical Impression: At risk for suicide Depression Qualifiers: Depression Type: major depressive disorder Major depression recurrence: recurrent Active/Remission status: currently active Major depression episode severity: severe Psychotic features: without psychotic features Qualified Code(s ): F33.2 - Major depressive disorder, recurrent severe without psychotic features
[2017-12-30 20:16] LABS: PLATELET COUNT 263 10^3/uL (150-400)
--- NOTE | 2017-12-30 23:54 | ASMTTLCEVL ---
TLC Evaluation - Basic Information Evaluation Start Date and 12/30/2017 09:15 PM Time Hospital Status Answers: M1 Hold 72-hr M1 Hold Start Date 12/30/2017 07:39 PM and Time Patient statement Notes: "I will not commit suicide; I would not do that to my surviving son". Narrative Notes: Pt is a 72 y/o female brought to the ER by the police. She was placed on a M1 by the ED physician for being a danger to herself. Per M1, "Marlon has emailed a letter to her sisters saying she is extremely depressed. She also said good-bye in the letter in a suicidal way. When talking with Marlon she admitted to thinking about killing herself. She did not know how she was going to do it. Marlon has also stopped eating adequate meals throughout the day. I asked marlon if she has tried talking to someone about the depression and she said 'yes' but it has not helped. Marlon then asked to get help". Per ED physician's report she stated that she lost her son (her other son commited suicide in 2004 by jumping off of a sudheer). She states that she no longer wants to live without her son and feels suicidal and that she has felt like this for a long period of time. She denied any specific plan and denied an suicide attempt this evening. When clinician entered the Pt's room she was crying and stating, "I don't know why I'm here". Pt's hair was disheveled, affect flat. Voice moderately paced, linear and logical. No signs of loose associations. Her answers during the assessment were brief, guarded and defensive. Pt denied any depression or suicidality, "I had a sad day". She stated that a flat tire in the morning followed by a visit to her (he lives in a care facility) left her feeling overwhelmed. 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 She states that she's done this before. Pt stated that her sense of being overwhelmed led to her feeling sad and concern over her should she before him. She states that this is why she wrote to her sisters, not because she was feeling suicidal. When addressing the fact they contacted the police she shared, "They finally cared". Pt did not recall her conversation with the police, but denied that she spoke to them of depression or suicide. She denied that she had told the ED physician that she no longer wanted to live without her son and stated that she hadn't ever met with a doctor. She reported eating well, "I have a good appetite". When asked about her alcohol consumption she relayed that she had drank 2 beers and reported that she drank this daily; her BAL was 26 upon arrival at ER. She had a large purple and swollen bruise on her arm; she stated she believed it occured after she left the house with the police. The RN examined it and couldn't be sure of when it had occured. When the clinician returned to the room to talk to her about hospitalization she was standing against the wall, holding a pillow in front of her. She stated that she would not go to the hospital. Her presence was defiant. She would not listen to her patient rights. She declined calling her son. When it was suggested that her son could take care of her pets this evening she again stated that she would not call him. She has several pets that need care. It should be noted that January is "suicide prevention month". Pt was hospitalized last January and now again just prior to January. Her first hospitalization was just after the 5th anniversary of her son's . Diagnosis History Notes: On 02/15/17, while on [facility]'s behavioral health unit: Bipolar disorder type 1, most recent episode depressed, severe with mixed manic features Alcohol use disorder, severe Cannabis use disorder, mild On 10/22/09, while on [facility]'s behavioral health unit: Bipolar affective disorder. type 1, manic with psychotic features Brief reactive psychosis Anorexia Nervosa Prior suicide attempts Notes: Pt denies. Prior hospitalizations Notes: 02/09/17 - 02/15/17 [facility] (tangential thinking,rapid speech, disorganized thoughts, extreme lability,felt hopeless, not sleeping, not eating) 10/20/09 - 10/22/09 [facility] (disorganized thinking, psychotic ) Unknown Time - residential substance abuse treatment for alcohol Treatment Responses Notes: On her discharge from [facility] on 02/15/2017 Pt had a marked improvement with improved mood stability, improved sleep, improved thought organization and improved insight and better judgement. History of violence Notes: Pt denies Psychiatrist: Dr Rah Wolfe Medications (name, dosage, route, freq uency) Notes: Latuda Allergies/Reaction Notes: None known. Sleep Notes: 4-5 hrs a night Appetite Notes: Pt reports "a good appetite". She told the police officers. Hx of anorexia as of last January 2017 (symptoms of an eating disorder going back to the age of 15). Medical/Surgical history Notes: Past foot surgery. Lumbar laminectomy, hypothyroidism and a cholecystectomy. Substance use history (frequency, intensity, his tory, duration) Notes: Pt has a hx of both alcohol and cannabis disorders. She reports being in a substance abuse program approx 20 years ago. She reports now drinking 2 beers a day. Her BAL upon arrival in ED was 26. Her breathylizer test was negative when she was assessed. Family composition Notes: Pt has a with Parkinson's who is living in a memory care center. She has one living, adult son. Pt has 3 sisters; relationships are difficult. Need for family Answers: No participation in patient's care Family psychiatric/substance abuse history Notes: One of Pt's sons committed suicide in 2004. he jumped [place] of a mountain killing himself. Mother has bipolar disorder, was institutionalized for much of her life Father was an alcoholic. Developmental history Notes: Pt's brother in a car accident when she was 7. She reports her father drank and was verbally abusive to her mother and herself. Abuse concerns Answers: Past Victim Marital status/children Notes: Pt is with 2 sons, one is living. In 2004 her other son jumped off of a mountain, killing himself. Living situation Notes: Lives alone. Sexual history/orientation Notes: Heterosexual. Peer support/family strengths Notes: Supportive son. Education level/history Notes: Pt has a college degree and a teacher's certificate. 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 Notes: Denies. Legal Notes: Denies. Zoroastrianism/Spiritual Notes: Unknown. Leisure Notes: Unknown Patient's strengths Answers: Intelligent (Please select at least TWO strengths): Supportive Family TLC Evaluation - Mental Status Exam Appearance: Answers: Unkempt Disheveled Eye Contact: Answers: Good/Direct Mood: Answers: Depressed Affect: Answers: Congruent w/ Mood Flat Guarded Sad Tearful Behavior: Answers: Crying Guarded Resistive to Care Speech: Answers: Logical Clear Coherent Thought Process: Answers: Organized Alert Insight: Answers: Poor Judgement: Answers: Poor Depression Answers: Crying Spells Signs/Symptoms: Flat Affect Sad Mood Hallucinations: Answers: None Current Stage of Change Answers: Relapse Pt reported to have Answers: Yes suicidal/self-injuring ideation/behavior? Pt reported to be making Answers: Yes suicidal/self-injuring threats? Pt reported to have Answers: No aggression/assault ideation/behavior? Pt reported to be making Answers: No aggression/assault threats? Pt exhibits inability to Answers: No care for self/grave disability? Ideation/behavior is Answers: No chronic? Patient has a specific Answers: No plan? Ideation has Answers: No delusional/hallucinatory content? History of Answers: No suicidal/self-injuring ideation, behavior, or threats? History of Answers: No aggressive/assaultive ideation, behavior, or threats? History of serious Answers: No physical harm to self/others while in treatment setting? [facility] Evaluation - Suicide/Homicide Risk Suicide Risk Factors: Answers: < 20 or > 40 Years of Age Alcohol/Heavy Drug Use Bipolar Disorder Eating Disorders Flat Affect Global Insomnia History of Abuse Hx of Suicide Attempt by Family Member Intoxication Recent of Loved One Homicide/violence risk Answers: None factors: Current Suicidal Answers: Yes Ideation? Current Suicide Ideation Unknown Frequency: Current Suicidal Ideation Answers: Yes in the Past 48 Hours? Current Suicidal Ideation Answers: Yes in the Past Month? Current Suicidal Answers: Yes Ideation, Worst Ever? Suicide Internal Answers: Absence of Psychosis Protective Factors: Suicide External Answers: Responsibility to Pets Protective Factors: Responsibility to Children Ranking of patient's Answers: Imminent suicidal risk: Ranking of patient's Answers: Low homicidal risk: TLC Evaluation - Wrap-up BDI Total Score: 3 BDI Question #2 Score: 0 BDI Question #9 Score: 0 BSS Total Score: 0 AXIS I Diagnosis (include DSM-V and ICD-10 codes), must also be entered in [employer], which is the source of truth. Notes: Bipolar I Disorder, current or most recent episode depressed, severe 296.53 (F31.4) Alcohol Use Disorder, moderate 303.90 (F10.20) In consultation with [facility] ED physician, Dr Vega Klein ,and on-call psychiatrist,Dr Juli Alves MD , both concurred that Pt appears to meet 27-65 criteria requiring psychiatric hospitalization as Pt appears to be at risk of harm to self due to a mental illness condition. Pt was given the 3[facility] prohibited belongings list while in the ED. Evaluation End Date and 12/30/2017 11:50 PM Time (HH:KAROLINE): Date Signed: 12/30/2017 11:54 PM Electronically Signed By:Litzy Casillas
--- NOTE | 2017-12-30 23:55 | ASMTTCLDSP ---
TLC Discharge Disposition Disposition: Answers: Admit Discharge Concerns/Recommendations: Notes: In consultation with [facility] ED physician, Dr Vega Klein ,and on-call psychiatrist,Dr Juli Alves MD , both concurred that Pt appears to meet 27-65 criteria requiring psychiatric hospitalization as Pt appears to be at risk of harm to self due to a mental illness condition. Pt was given the 3N prohibited belongings list while in the ED. Was patient given the Answers: Yes Inpatient Behavioral Health Prohibited Belongings List while in the ED? For inpatient Dr Long MD admission, the following psychiatrist agreed to accept patient for admission to Behavioral Health ([facility]): Type of Hold: Answers: M1/72-hour Hold Hold initiated by: Answers: ED Physician Date Signed: 12/30/2017 11:55 PM Electronically Signed By:Litzy Casillas
[2017-12-31] MEDS ORDERED: MAG HYDROX/AL HYDROX/SIMETH 30 ML UDCUP PO PRN (00:20)
[2017-12-31] MEDS ORDERED: MAGNESIUM HYDROXIDE 30 ML UDCUP PO PRN (00:20)
[2017-12-31] MEDS: OLANZapine DISINTEGR 5 MG TAB PO PRN ×2 (01:28→05:33)
[2017-12-31] MEDS: LORazepam 0.5 MG TAB PO PRN ×2 (01:28→05:33)
--- NOTE | 2017-12-31 09:17 | ASMTBHMTP ---
Master Treatment Plan Master Treatment Plan Answers: Depressed Mood with for: Suicidal Ideation Date: 12/31/2017 Diagnosis on Admission: Bipolar I Disorder, current or most recent episode depressed, severe 296.53 (F31.4) Expected length of stay: 3-5 Reason for admission: Notes: Pt is a 72 y/o female brought to the ER by the police. She was placed on a M1 by the ED physician for being a danger to herself. Per M1, "Gretchen has emailed a letter to her sisters saying she is extremely depressed. She also said good-bye in the letter in a suicidal way. When talking with Gretchen she admitted to thinking about killing herself. She did not know how she was going to do it. Gretchen has also stopped eating adequate meals throughout the day. I asked gretchen if she has tried talking to someone about the depression and she said 'yes' but it has not helped. Gretchen then asked to get help". Patient's stated presenting problems: Notes: "I sent an email that I shouldn't have sent". Patient's goals for treatment: Notes: "Getting out". Patient's strengths: Notes: "I'm smart" Identify supports outside of hospital: Notes: "I have a lot of friends". Discharge criteria: Notes: SI will be resolved and ct. will have a plan to safely manage recurrent SI. Initial disposition plan/considerations: Notes: Schedule f/u appointment with Dr. Rees. Master Treatment Plan Required Signatures Psychiatrist signature: Answers: Psychiatrist: RN on-shift signature: Answers: RN: Patient signature: Answers: Patient: Date Signed: 12/31/2017 09:17 AM Electronically Signed By:Gabbie Russ
--- NOTE | 2017-12-31 11:57 | ASMTCMCOM ---
CM Note CM Note Notes: CC met with ct. to develop MTP. Ct. presented with very flat and tearful affect. Ct. reported that she was admitted in error and said that she needs to be discharged today. Ct. reported that she left her dog and her birds at home w/o food/water. CC tried to engage ct. in problem solving re: pets but she refused saying that she doesn't want her friends knowing that she is on the unit. CC than called [employer] requesting they rescue pets. When ct. heard that [employer] are involved she called a friend, Mansi and asked for her assistance with pets. Ct. signed a KING for her psychiatrist Rah Rees. Date Signed: 12/31/2017 11:56 AM Electronically Signed By:Gabbie Russ
[2017-12-31] MEDS ORDERED: clonazePAM 1 MG TAB PO PRN (14:26)
[2017-12-31] MEDS ORDERED: metFORMIN HCL 850 MG TAB PO ONE (14:28)
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
--- NOTE | 2017-12-31 16:17 | BCON ---
INTERNAL MEDICINE CONSULTATION DATE OF CONSULTATION: 12/31/2017 REFERRING PHYSICIAN: Juli Alves MD REASON FOR REFERRAL: Medical clearance for inpatient behavioral health stay. HISTORY OF PRESENT ILLNESS: This patient came to the emergency department yesterday feeling depresse d and suicidal. She was evaluated by the mental health team and admitted for further psychiatric car e. Her only complaint currently is that she wants to leave to the inpatient behavioral health unit. She reports that she has an appointment with "my foundation" tomorrow in the morning. PAST MEDICAL HISTORY: 1. Gastrointestinal bleed in June of 2017. 2. Aspiration pneumonia in June of 2017. 3. Cholecystitis. 4. Depression and bipolar disorder. 5. Right wrist fracture. 6. Seizure. 7. Syncope. 8. Hypothyroidism. 9. Neuropathy. 10. Alcohol use disorder. PAST SURGICAL HISTORY: 1. Cholecystectomy. 2. Multiple uterine or cervical surgeries. 3. Left foot surgeries for bunion and for complications of the initial surgery. 4. Lumbar laminectomy. 5. Right wrist fracture, status post ORIF. MEDICATIONS: Prior to admission according to the emergency department note: 1. Baclofen 10 mg p.o. q.h.s. p.r.n. 2. Duloxetine 60 mg p.o. daily. 3. Folic acid 1 mg p.o. daily. 4. Gabapentin 300 mg p.o. t.i.d. 5. Levothyroxine 50 mcg p.o. daily. 6. Multivitamin daily. 7. Naltrexone 50 mg p.o. q.h.s. 8. Quetiapine 200 mg p.o. q.h.s. 9. Clonazepam 0.5 mg p.o. daily. 10. Acetaminophen 650 mg p.o. q.4 hours p.r.n. 11. Thiamine 100 mg p.o. daily. ALLERGIES: There is an allergy listed in the social group worker's note to [facility]. SOCIAL HISTORY: She lives alone. 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 Her has Parkinson's and lives i a care facility. She had 2 sons, 1 of whom committed suicide. She has a history of significant al cohol use disorder. She is a nonsmoker. FAMILY HISTORY: Positive for mental health and alcoholism. REVIEW OF SYSTEMS: She denies pain, cough, dyspnea, fevers, chills, weight change, nausea, vomiting, constipation, diarrhea. Otherwise, a 10-point review of systems is negative. PHYSICAL EXAM: VITAL SIGNS: Blood pressure is 186/86, that was at 1 o'clock this morning. Heart ra te was 68, respiratory rate was 14, oxygen saturation was 97% on room air. Temperature is 37 degrees centigrade. Her weight is 91.2 kg for a body mass index of 21.1. GENERAL: This is a well-nourishe d, well-developed woman, appears older than her chronologic age, cooperative, and in no acute distres s. HEENT: Extraocular movements are intact. Pupils are equal, round, reactive to light. Mucous me mbranes are moist. Dentition is in good condition. She has an uncrowded airway, Mallampati class 1. NECK: Supple. HEART: There is a regular rate and rhythm with no murmurs, rubs, or gallops. LUNG S: Clear to auscultation bilaterally. ABDOMEN: Benign. EXTREMITIES: There is no cyanosis, clubbi ng, or edema. NEUROLOGIC: She is alert. She is oriented to location, situation, year and month. S he is off on the date of the month by 1 day, thinking that today is January 01, rather than . Cranial nerves 2-12 are grossly intact. She has a flat affect and somewhat slow processi ng. There is no focal weakness. Sensation is intact to light touch. LABORATORY DATA: From the emergency department, she had mild anemia with a hemoglobin of 12.3 and he matocrit of 36.7. Serum chemistry revealed normal renal function and electrolytes. Hemoglobin A1c w as normal at 5.6. She had normal liver functions with the exception of a slightly elevated AST at 55 . Toxicology screen in the serum was positive for 26 mg/dL of ethyl alcohol. Toxicology screen in t he urine was negative for any substances of abuse. ASSESSMENT/RECOMMENDATIONS: 1. Mental health issues. Pending further evaluation and management per Psychiatry and the [facility] alth team. 2. Alcohol use disorder by history and with a positive EtOH in her urine. Additionally, there is a mild elevation of AST. These might point to continuing alcohol use. 3. Elevated blood pressure. Unclear if she might have hypertension versus alcohol withdrawal versus emotional stress contributing to an elevated blood pressure at 1 o'clock this morning. She is not s howing any other signs or symptoms of alcohol withdrawal, including no tremors and no tachycardia. C lonazepam has been ordered as a p.r.n. medication. She received a dose of lorazepam at 5 o'clock thi s morning. Advised continuing to monitor her blood pressure and monitoring for any signs or symptoms of alcohol withdrawal. 4. Regarding anemia, I will add on an iron panel to the labs that were drawn yesterday. I see no medical contraindications to this patient's continued stay on the inpatient [facility] unit or to any psychiatric medications or procedures. Thank you very much for including me in the care of this patient and please do not hesitate to contac t me or the hospitalist service should there be need for further medical evaluation. /[id number]/MODL
[2017-12-31] MEDS: GABAPENTIN 300 MG CAP PO SCH ×2 (18:07→22:02)
[2017-12-31] MEDS: LURASIDONE HCL 40 MG TAB PO SCH (18:07)
[2017-12-31] MEDS: ZOLPIDEM TARTRATE 5 MG TAB PO SCH (20:17)
[2017-12-31] MEDS: clonazePAM 1 MG TAB PO PRN (20:23)
[2017-12-31] MEDS: ZOLPIDEM TARTRATE 5 MG TAB PO PRN (23:23)
[2017-12-31] MEDS: ACETAMINOPHEN 325 MG TAB PO PRN (23:28)
[2018-01-01] MEDS: clonazePAM 1 MG TAB PO PRN (03:24)
[2018-01-01] MEDS: GABAPENTIN 300 MG CAP PO SCH ×3 (08:37→19:26)
--- NOTE | 2018-01-01 09:24 | SOAPPROG ---
SOAP Progress Note Assessment/Plan: Assessment: Bipolar disorder, current depressed. No improvement noted. (see subjective/ objective note). Patient is not safe to discharge at this time as patient continues to exhibit signs of depression. Patient requires continued inpatient care because of current depression, and requires inpatient level of care to stabilize. Patient could benefit from continued inpatient hospitalization for crisis stabilization, safety, and medication evaluation. Plan: (1) Psychotropic medications: After reviewing options, risks, and benefits patient agrees to continue current medications. No medication changes at this time as more time is needed to determine ongoing tolerability and efficacy. Plan is to continue to observe patient for response and side effects from medications, and ongoing monitoring and evaluation. (2) Review with patient informed consent and recommendations for psychotropic medication treatment listed below (3) Labs: no additional labs at this time (4) Therapy: continue milieu and group therapy (5) Further investigation including gathering information from patients relatives and review of past case records to inform treatment plan. (6) Safety/Wellness plan and follow-up outpatient appointments to be established prior to discharge. Next steps are for patient to meet with direct care supervisor to plan a safe discharge plan and establish outpatient services for ongoing treatment. (7) Confer with inpatient treatment team regarding treatment plan (8) Legal status: M1 hold (9) Consider discharge on Sunday if patient is in stable condition, safe, and has a safe discharge plan. PSYCHOTROPIC MEDICATION TREATMENT INFORMED CONSENT and RECOMMENDATIONS: Review nature of condition, diagnosis, and prognosis. Review nature and purpose of psychotropic medication treatment. Review type of psychotropic medications being ordered. Review risk and benefits of psychotropic medication treatment. Review probable length of time patient will need to take medications. Review risk and benefits of not undergoing psychotropic medication treatment. Review alternative treatments to psychotropic medications. Review psychotropic medications contraindications, drug-drug interactions, side effects, and importance of reporting any side effects to a psychiatric provider or nurse during inpatient hospitalization, and upon discharge to patients psychiatric outpatient provider, primary care provider, or other health career orientation teacher. Review importance of asking a nurse, psychiatric provider, or primary care provider any questions or problems concerning the psychotropic medications. Verify patient understands the information that has been provided, and understands, accepts, and agrees to psychotropic medications. Review patients safety plan and importance of patient to report to staff while hospitalized if patient is ever a danger to self/others, or unable to care for self, and upon discharge, the importance for patient to contact [facility] or 911, or go to the nearest emergency room, if patient is ever a danger to self/others, or unable to care for self. Recommend that upon discharge patient establish medication management treatment with a psychiatric provider, establishes routine therapy appointments, and follow-up with primary care provider. Verify patient understands and agrees to these recommendations. 01/01/18 09:25 Subjective: Following up with patient for evaluation of depression and safety. Patient reports, "Okay, no depression, just can't sleep, didn't sleep last night." Patient expresses the following psychiatric symptoms none. Patient reports taking medications as prescribed, and describes response to medications as good. Patient does not report undesirable side effects from the medications. Patient reports appetite as good, and reports eating all meals. Patient describes getting 2 hours of sleep. Patient reports typically gets 4-5 hours. Patient reports she was triggered prior to her admission by an upcoming event for suicide prevention intervention, and patient states that "always reminds me of my son." Patient's son completed suicide by jumping off a sudheer 13 years ago. Patient reports her sister visited yesterday, and reports meeting went well. Patient requests for this [employer] to contact her family and friends to assess her safety to discharge. Patient states she has no thoughts of suicide and states, "I would never do that to my family, I would not want to put my living son through that." Objective: Vital Signs Temp Pulse Resp BP Pulse Ox 36.7 C 67 16 159/78 H 97 12/31/17 23:30 12/31/17 23:30 12/31/17 23:30 12/31/17 23:30 12/31/17 23:30 NURSING REPORT: Consulted with nursing for update on patients progress in treatment. Nurses report patient is engaged in treatment, is attending groups, slept 6 hours, expresses the following psychiatric symptoms: none, exhibits the following psychiatric symptoms: flat, depressed, withdrawn, tearful at times; is eating all meals, is taking medications as prescribed with no report of side effects, with no s/s of EPS/akathisia, and denies SI/HI, denies A/V hallucinations, and denies delusions. MATERNITY NURSE UPDATE: currently working on setting up outpatient services. TREATMENT PLANNING MEETING: patient agrees to attend treatment planning meeting today. MSE: The patient is an under-nourished female looking stated chronological age. Attire is appropriate and dress is casual. Grooming status is inappropriate and disheveled. Ambulation is independent. Gait is normal and coordinated. Posture is normal and relaxed. Eye contact is appropriate, and adequate. Motor activity is appropriate with purposeful, organized, coordinated movements ; with no involuntary movements. Attitude is cooperative and defensive at times. Patient appears attentive and relates well to this interviewer. Language production is spontaneous. R/R/V normal. Articulation is clear. Patient reports mood as okay with flat and incongruent, inappropriate affect. Patient is tearful at times during interview. Patients thought process is linear and logical, with no loose associations, tangential thought, thought blocking, concrete thinking, or any other signs of formal thought disorder. Patient does not report suicidal/homicidal thoughts, ideas, or plans. Patient denies auditory, visual hallucinations. Patient denies delusions. Patient does not appear to be attending to internal stimuli. Patients attention and concentration are poor. Patient is oriented to person, place, time. Patients insight is fair. Patients judgment is fair. No evidence of gross cognitive dysfunction at any point during the interview. No evidence of apparent dysfunction in recent or remote memory. - Time Spent With Patient Time Spent With Patient: 15 minutes, met with patient individually. - Pending Discharge Pending Discharge Within 24 Hours: Yes Pending Discharge Within 48 Hours: No Pending Discharge Date: 01/02/18 Pending Discharge Time: 11:00 ICD10 Worksheet Patient Problems: Problems Problem Status Onset At risk for suicide Acute Bipolar I disorder, most recent episode depressed with anxious distress Acute Depression Acute Alcohol dependence Acute Alcohol withdrawal Acute Bipolar mood disorder Acute Fracture of left great toe Acute GI bleed Acute Hypothyroidism Acute Hypoxemia Acute Neuropathy Acute Pneumonia Acute
[2018-01-01] MEDS ORDERED: LEVOTHYROXINE 50 MCG TAB PO SCH (10:00)
--- NOTE | 2018-01-01 13:33 | ASMTCMCOM ---
CM Note CM Note Notes: Client participated in treatment team meeting today. Client remains most flat affect, discouraged and sad. Provider would like sister to come to the unit and participate in family meeting (Lisa [phone]). Client will need to complete KING, then CC will reach out to connect with sister. Date Signed: 01/01/2018 01:32 PM Electronically Signed By:Tony Riggs
--- NOTE | 2018-01-01 17:53 | SOAPPROG ---
CHARISSA Progress Note Assessment/Plan: Assessment: 1. Iron deficiency anemia. Prescribed ferrous sulfate 325 mg p.o. Q.day. Advise continuing for 1 month. She should have outpatient evaluation for social blood loss including possible colonoscopy to evaluate for colon cancer or polyps. 2. Dyslipidemia. Per the ACC/AHA cardiac risk calculator, her 10 year FL or CVA risk is 10.8%. Recommendations are for a moderate to high intensity statin. Advised outpatient discussion of risks and benefits of statin medication. Alternately, psychiatry could have this discussion with her if she is to be put on medications which are known to contribute to metabolic syndrome. 3. Elevated blood pressure on admission appears to have resolved. Continue to monitor. Given her risk for FL or CVA, blood pressure control is important. 01/01/18 17:49 Subjective: Labs reviewed. Objective: Vital Signs Temp Pulse Resp BP Pulse Ox 36.7 C 65 12 135/46 H 95 12/31/17 23:30 01/01/18 16:00 01/01/18 16:00 01/01/18 16:00 01/01/18 16:00 ICD10 Worksheet Patient Problems: Problems Problem Status Onset Alcohol use disorder, severe, in controlled environment Acute Bipolar I disorder, most recent episode depressed with anxious distress Chronic Fracture of left great toe Acute Pneumonia Acute Hypoxemia Acute GI bleed Acute Depression Acute At risk for suicide Acute Hypothyroidism Acute Neuropathy Acute Alcohol withdrawal Acute Bipolar mood disorder Acute Alcohol dependence Acute
[2018-01-01] MEDS: LURASIDONE HCL 40 MG TAB PO SCH (19:18)
[2018-01-01] MEDS: ZOLPIDEM TARTRATE 5 MG TAB PO SCH (19:18)
[2018-01-01] MEDS: ZOLPIDEM TARTRATE 5 MG TAB PO PRN (19:26)
[2018-01-01] MEDS: ACETAMINOPHEN 325 MG TAB PO PRN (23:05)
[2018-01-02] MEDS: clonazePAM 1 MG TAB PO PRN (05:13)
[2018-01-02] MEDS ORDERED: LEVOTHYROXINE 50 MCG TAB PO SCH (06:00)
[2018-01-02] MEDS: GABAPENTIN 300 MG CAP PO SCH (07:39)
[2018-01-02] MEDS: ACETAMINOPHEN 325 MG TAB PO PRN (07:41)
[2018-01-02] MEDS ORDERED: FERROUS SULFATE 325 MG TAB PO SCH (09:00)
[2018-01-02 11:48] VITALS: BP 138/76
--- NOTE | 2018-01-02 14:12 | BDS ---
REASON FOR ADMISSION: From the ED note dated 12/30/2017, the patient reported she no longer wanted to live without her son and she felt suicidal. The patient reports she has felt this way for quite a long time. The patient denied any specific plan. The patient denied any attempt at suicide. Prior to presenting to the ER, the patient was cooperative yet tearful from the M1 hold. The patient had emailed a letter to her sisters saying she is extremely depressed and she also said goodbye in the letter in a suicidal way. The patient admitted to thinking about killing herself to the [facility] fine wire drawer. The patient reported she did not know how she was going to do it. The patient was admitted involuntarily on an M1 hold due to being a danger to herself. The patient was admitted for safety crisis stabilization and medication management. ADMITTING DIAGNOSES: 1. Bipolar I disorder, most recent episode depressed with anxious distress. 2. Alcohol use disorder, severe, in a controlled environment. ADMISSION PHYSICAL EXAM: The patient was seen by Dr. Wang for internal medicine consultation on 12/31/2017, for medical clearance for inpatient Behavioral Health stay. Dr. Wang reported he saw no medical contraindications to the patient's continued stay on the inpatient behavioral health unit or to any psychiatric medications or procedures. For further details regarding the patient's admission physical exam, please refer to Dr. Wang's note dated 12/31/2017. ADMISSION LABS: From the emergency department, the patient had mild anemia with a hemoglobin of 12.3 and hematocrit of 36.7. Serum chemistry revealed normal renal function and electrolytes. Hemoglobin A1c was normal at 5.6. The patient had normal renal functions with the exception of a slightly elevated AST at 55. Toxicology screen in the serum was positive for 26 mg/dL of ethyl alcohol. A toxicology screen in the urine was negative for any substances of abuse. Fasting lipid panel from 01/01/2018, was within normal limits except triglycerides were elevated at 212, cholesterol was elevated at 224, LDL cholesterol calculated was elevated at 122, VLDL cholesterol was elevated at 42 , non-HDL cholesterol was elevated at 164. MAJOR PROCEDURES OR TESTS: None. HOSPITAL COURSE: The most prominent symptoms and behaviors while the patient was here were moderate depression. The patient presented flat and withdrawn. The treatment modalities utilized were milieu and group therapy. The patient's outpatient medications were continued, including Latuda 40 mg p.o. daily at 6 p.m. to target mood symptoms, was tolerated with no report of side effects and with good response. Klonopin 0.5 mg p.o. daily p.r.n. to target anxiety symptoms was tolerated with no report of side effects and with good response. Gabapentin 300 mg p.o. three times daily for anxiety symptoms was tolerated with no report of side effects and with good response. Ambien 10 mg p.o. at bedtime to target insomnia symptoms with an additional 5 mg as needed. This medication was tolerated with no report of side effects and with good response. The patient has improved considerably with no signs of psychiatric symptoms and no psychiatric symptoms expressed at discharge. The patient reports she has improved since admission. States to be in stable condition. Feels safe to discharge and she contracts for safety. Patient's response to treatment was good. There were no adverse or unexpected results of treatment. The patient was safe throughout her stay, active in treatment, attended and engaged in groups, and was appropriate with staff and other patients. Treatment team met with patient to assess for safety of discharge, review discharge plan, and make recommendations for outpatient alcohol abuse treatment. The treatment team consensus is the patient is in stable condition and is safe to discharge today. CONDITION ON DISCHARGE: Patient is in stable condition and is no longer a danger to self or others, and is not gravely disabled due to mental illness. Patient is no longer in need of inpatient level of care, and can be safely and effectively treated within the community. The patients level of risk at time of discharge is low. MSE: The patient is casually dressed and with good hygiene , and looks stated age. Patient is sitting, posture is upright, and position is relaxed. Patient appears awake, alert, and responds appropriately and reasonably during interview. Patient is engaged, relates well to interviewer, and emotional facial expression is appropriate to situation and changes appropriately with topic. Patient is cooperative, makes comfortable eye contact , and movements are voluntary, deliberate, coordinated, and smooth and even with no inappropriate movements. Patient makes laryngeal sounds effortlessly and shares conversation appropriately; pace of conversation is appropriate, and stream of talking is fluent; articulation is clear and understandable; word choice is effortless and appropriate for education level; completes sentences, occasionally pausing to think; rate and volume are appropriate for interview and setting. Patient reports mood as euthymic. Patients affect is stable with full variable range, congruent with mood, and appropriate to speech and circumstances. Patient has linear and logical thinking, with no loose associations, tangential thought, thought blocking, concrete thinking, or any other signs of formal thought disorder. Patient denies suicidal and homicidal ideation, and denies hallucinations and delusions. Patient appears to be a reliable historian with sound judgement and good insight into current condition. Patient has no apparent dysfunction in recent or remote memory noted , and no evidence of gross cognitive dysfunction noted at any point during the interview. DISCHARGE DIAGNOSES: 1. Bipolar I disorder, most recent episode depressed with anxious distress. 2. Alcohol use disorder, severe CURRENT MEDICATIONS: After reviewing options risks and benefits the patient agrees to continue the following medications: Ferrous sulfate 325 mg p.o. daily , Latuda 40 mg p.o. daily at 1800 hours, Ambien 10 mg p.o. at bedtime, Ambien 5 mg p.o. at bedtime p.r.n., gabapentin 600 mg p.o. three times daily. The patient was provided with a prescription of gabapentin for 30 days at time of discharge. The patient to continue Klonopin 1 mg p.o. daily and patient to continue Synthroid 50 mcg p.o. daily at 0600 hours. At time of discharge medications were reviewed with the patient for accuracy and patient understanding. This LAMIN[employer] P[employer]ICS ASSEMBLER AND GLUER called the patient's pharmacy, [facility], at time of discharge to review medications to be sure that the patient had adequate prescriptions until her next appointment on January 15, 2018 with her outpatient psychiatrist at which time the patient will have her current prescriptions evaluated, adjusted as needed, and prescriptions refilled or new prescriptions as indicated. DISPOSITION: The patient left hospital independently and voluntarily after having a family meeting with her son, this LAMIN[employer] PLASTICS ASSEMBLER AND GLUER, and care director rn on a conference call and patient plans to return to her home in [place]. FOLLOWUP: media coordinator reports the appropriate outpatient follow-up services have been established and outpatient appointments have been scheduled. The patient received written instructions with times and dates of outpatient follow-up appointments. The following follow-up recommendations were provided to the patient at discharge: Continue psychotropic medications as prescribed and attend appointments as scheduled. Report any side effects to a psychiatric outpatient provider, a primary care provider, or other health child care attendant. Address any questions or problems concerning the psychotropic medications with a psychiatric outpatient provider, a primary care provider, or other health child care attendant. Contact [facility] or 911, or go to the nearest emergency room, if you are ever a danger to yourself/others, or unable to care for yourself. As soon as possible, establish a routine medication management treatment with a psychiatric provider, establish routine therapy appointments, and follow-up with a primary care provider. SUBSTANCE ABUSE BRIEF INTERVENTION: Brief intervention regarding the risks of alcohol abuse is provided to patient with goal to reduce the risk of harm that could result from the continued use of alcohol, with the general aim to investigate the problem, raise awareness of problem, develop a solution with the patient, recommend a specific change or activity, and motivate the patient toward change. Assess substance abuse behavior and give supportive advice about harm reduction, recommend a reduction in hazardous/at-risk consumption patterns, and facilitate referrals for additional specialized treatment with care director rn. Intermediate goal is for the patient to quit using alcohol and engage in outpatient substance abuse treatment. Intervention focus on intermediate goals to allow for more immediate success in the treatment process to keep the patient motivated. Review following with patient: Alcohol/Binge Drinking risks: short-term: injuries, violence, alcohol poisoning, risky sexual behaviors. Long-term: high blood pressure, stroke, liver disease, digestive problems, cancer, learning and memory problems, depression and anxiety, social problems, and alcohol dependence. LEGAL STATUS: The patient was admitted on an M1 hold for an involuntary inpatient psychiatric hospitalization. The patient discharged today independently and voluntarily ATTITUDE AT TIME OF DISCHARGE: The patients attitude was positive at time of discharge, and patient reports looking forward to discharging today. The patient reports she feels safe to discharge, is no longer a danger to herself or others, is in stable condition, and contracts for safety. Patient states she will continue medications as prescribed, and establish medication management treatment with an outpatient provider after discharge. Patient reports she understands the information that has been provided to her, and she understands, accepts, and agrees to psychotropic medications. Patient describes internal protective factors as the coping skills she has learned while hospitalized here, and she plans to continue to practice these coping skills after discharge. Patient reports external protective factors as family and friends. Patient describes looking forward to planning upcoming event after discharge. 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 Patient reports she has completed Safety/Wellness Plan and has reviewed Safety/ Wellness Plan with her nurse. Patient states her family and friends look forward to her discharging. FAMILY MEETING: At time of discharge, this L[employer] P[employer] AS[employer]BLER [employer]UER, care director rn, and patient, at patient's request, have conference call with patient's son to assess for safety of discharge and to review discharge plan. Patient's son reports patient has a safe discharge plan and is safe to discharge. LABORATORY DATA/PENDING STUDIES: There were no pending labs or studies at time. ADVANCED DIRECTIVES: There were no advance directives on file and the patient was full code during this hospitalization. The following psychotropic medication treatment informed consent and recommendations were provided to the patient at time of discharge. Patient reports she understands, accepts, and agrees to the information that has been provided. PSYCHOTROPIC MEDICATION TREATMENT INFORMED CONSENT and RECOMMENDATIONS: Review nature of condition, diagnosis, and prognosis. Review nature and purpose of psychotropic medication treatment. Review type of psychotropic medications being prescribed. Review risk and benefits of psychotropic medication treatment. Review probable length of time will need to take medications. Review risk and benefits of not undergoing psychotropic medication treatment. Review alternative treatments to psychotropic medications. Review psychotropic medications contraindications, side effects, and importance of reporting any side effects to a psychiatric provider, primary care provider, or other health child care attendant. Review importance of her asking a psychiatric provider or primary care provider any questions or problems concerning the psychotropic medications. Review importance of reporting to a psychiatric provider, primary care provider, or other health child care attendant if she plans to or becomes . Review safety plan and the importance to contact [facility] or [facility] , or go to the nearest emergency room, if ever a danger to yourself/others, or unable to care for yourself. Recommend upon discharge to establish routine medication management treatment with a psychiatric provider, establish routine therapy appointments, and follow-up with a primary care provider. Verify patient understands, accepts, and agrees to the information that has been provided. SUICIDE ASSESSMENT FIVE-STEP EVALUATION AND TRIAGE (1) RISK FACTORS: (a) Suicidal behavior: patient denies history of suicide attempts (b) Current/past psychiatric disorders: bipolar depression, alcohol use disorder (c) Guadalupe symptoms: none expressed and none exhibited at time of discharge (d) Family history: patient's son 13 years ago (e) Precipitants/Stressors/Interpersonal: none (f) Change in treatment: discharge from psychiatric hospital (g) Access to firearms: none (2) PROTECTIVE FACTORS: (a) Internal: coping skills learned while hospitalized (b) External: family and friends (3) SUICIDAL INQUIRY: (a) Ideation: none (b) Plan: none (c) Behaviors: none; patient was safe throughout stay with no suicidal or parasuicidal behaviors (d) Intent: none (4) RISK LEVEL: Low: modifiable risk factors, strong protective factors; no suicidal or self-injurious ideation. Intervention: treatment plan to reduce symptoms including medications and therapy, provided emergency/crisis numbers, established follow-up plan, and supportive family. /[id number]
== END 2018-01-02 12:05 | disposition home or self-care (01) | DRG 885 ==
LOC: EEVIPCON 19:34 → BBEH 12-31 00:35
PROVIDERS: ADMIT Psychiatry & Neurology Behavioral Neurology & Neuropsychiatry; ATTEND Psychiatry & Neurology Behavioral Neurology & Neuropsychiatry
DX: F31.5 Bipolar disorder, current episode depressed, severe, with psychotic features (principal); Z72.89 Other problems related to lifestyle; D50.9 Iron deficiency anemia, unspecified; E78.5 Hyperlipidemia, unspecified; R03.0 Elevated blood-pressure reading, without diagnosis of hypertension
CPT/HCPCS: 80305; G0480

== ENCOUNTER → 2018-01-07 | Outpatient (CLI) | payer OTHER | LOC: BMCIMAGING 12:00 | PROVIDERS: ATTEND Family Medicine | DX: S52.591D Other fractures of lower end of right radius, subsequent encounter for closed fracture with routine healing (principal); M18.11 Unilateral primary osteoarthritis of first carpometacarpal joint, right hand ==

== ENCOUNTER → 2018-01-17 | Outpatient (CLI) | payer OTHER | LOC: BMCIMAGING 11:47 | PROVIDERS: ATTEND Family Medicine | DX: S22.32XA Fracture of one rib, left side, initial encounter for closed fracture (principal) | CPT/HCPCS: 71101-PO ==

== ENCOUNTER 2018-05-07 04:17 | Emergency (ER) | payer OTHER ==
--- NOTE | 2018-05-07 04:22 | EDPHY ---
H & P Time Seen by Provider: 05/07/18 04:22 HPI/ROS: HPI CHIEF COMPLAINT: Toe injury. HISTORY OF PRESENT ILLNESS: 72-year-old female she has history bipolar disorder , depression, presents emergency room left arm pain left foot pain. She states she took a mechanical trip and fall around 3:00 a.m. Or 2 hr ago. She states she was getting up she believes to use the bathroom out of bed tripped and fell over her dog she states her left great toe drags on the ground chronically and she has toe drag sometimes this caused her to fall. She landed on her left humerus, she denies left lateral humerus pain, left great toe discomfort. Denies chest pain or shortness of breath. Of note also she has very flat affect is tearful. She suffers from depression. She denies suicidal ideation. I did offer mental health resources in to speak with mental health however she has declined to speak with them. She is not on any medications. Past Medical History: Past medical history for bipolar disorder, alcoholism, depression Past Surgical History: No recent surgery Social History: Drinks alcohol 2 glasses of wine last night. Family History: Noncontributory ROS REVIEW OF SYSTEMS: 10 Systems were reviewed and negative with the exception of the elements mentioned in the history of present illness. Exam Constitutional nontoxic no acute distress triage nursing summary reviewed, vital signs reviewed, awake/alert. Eyes normal conjunctivae and sclera, EOMI, PERRLA. HENT normal inspection, atraumatic, moist mucus membranes, no epistaxis, neck supple/ no meningismus, no raccoon eyes. Respiratory clear to auscultation bilaterally, normal breath sounds, no respiratory distress, no wheezing. Cardiovascular rate normal, regular rhythm, no murmur, no edema, distal pulses normal. Gastrointestinal soft, non-tender, no rebound, no guarding, normal bowel sounds, no distension, no pulsatile mass. Genitourinary no CVA tenderness. Musculoskeletal left upper extremity: Ecchymosis present. No crepitus. Mildly tender palpation left lateral humerus. Left arm is neurovascular intact with good distal pulse, good cap refill, good sensation, good exerciser strength. Additionally left lower extremity: Weak left great toe chronically at baseline , mild tender palpation with range of motion. No significant swelling. No crepitus, no ecchymosis. Left foot neurovascular intact good distal pulse, good cap refill. .no midline vertebral tenderness, full range of motion, no calf swelling, no tenderness of extremities, no meningismus, good pulses, neurovascularly intact. Skin pink, warm, & dry, no rash, skin atraumatic. Neurologic awake, alert and oriented x 3, AAOx3, moves all 4 extremities equally, motor intact, sensory intact, CN II-XII intact, normal cerebellar, normal vision, normal speech. Psychiatric normal mood/affect. Heme/Lymph/Immune no lymphadenopathy. Differential Diagnosis: Includes but is not limited to in a particular order left foot sprain, left foot fracture, left toe fracture, contusion, arm fracture left, left humerus fracture left humerus contusion, depression Medical Decision Making: Plan for this patient x-ray left humerus, left foot x- ray for evaluation for trauma, will also provide mental health resources for the patient. She declined to speak with mental health at this time. Denies suicidal ideation. Re-evaluation: X-ray of the left humerus read by myself negative for acute fracture malalignment. X-ray of the left foot nail hardware in place unchanged from previous x-ray. No evidence of acute fracture visualized image interpreted by myself. [id number]: Nicko with mental health gave the patient mental health resources. Additionally x-ray left humerus left foot reviewed. Negative for acute traumatic injury fracture I have updated the patient on this. She is happy with Resource she was provided. She denies want hurt herself or anybody else. She is comfortable going home. I discussed return precautions with her. Source: Patient - Medical/Surgical History Hx Asthma: No Hx Chronic Respiratory Disease: No Hx Diabetes: No Hx Cardiac Disease: No Hx Renal Disease: Yes Hx Cirrhosis: No Hx Alcoholism: No Hx HIV/AIDS: No Hx Splenectomy or Spleen Trauma: No Other PMH: bipolar, gallbladder surgery, ortho surgeries./laminectomy/cervical problems. depression - Social History Smoking Status: Never smoked Constitutional: Initial Vital Signs Temperature (C) 36.7 C 05/07/18 04:21 Heart Rate 77 05/07/18 04:21 Respiratory Rate 16 05/07/18 04:21 Blood Pressure 187/110 H 05/07/18 04:21 O2 Sat (%) 94 05/07/18 04:21 O2 Delivery Mode Room Air Allergies/Adverse Reactions: bee venom protein (honey bee) Allergy (Verified 05/07/18 04:25) Departure - Departure Disposition: Home, Routine, Self-Care Clinical Impression: Multiple contusions Fall Qualifiers: Encounter type: initial encounter Qualified Code(s): W19.XXXA - Unspecified fall, initial encounter Condition: Good Instructions: Contusion in Adults (ED), Foot Contusion (ED), Hematoma (ED) Additional Instructions: 1. Recommend ice. 2. Recommend anti-inflammatory pain medicine 3. Return emergency room if worsening symptoms Referrals: Casandra Lopez MD [Primary Care Provider] - As per Instructions
[2018-05-07 04:25] VITALS: BP 187/110
== END 2018-05-07 06:38 | disposition home or self-care (01) ==
DX: S90.112A Contusion of left great toe without damage to nail, initial encounter (principal); S40.022A Contusion of left upper arm, initial encounter; W01.0XXA Fall on same level from slipping, tripping and stumbling without subsequent striking against object, initial encounter; Y92.013 Bedroom of single-family (private) house as the place of occurrence of the external cause; F31.9 Bipolar disorder, unspecified

== ENCOUNTER → 2018-05-29 | Outpatient (CLI) | payer OTHER | LOC: BMCIMAGING 14:30 | PROVIDERS: ATTEND Family Medicine | DX: S62.617A Displaced fracture of proximal phalanx of left little finger, initial encounter for closed fracture (principal) ==

== ENCOUNTER 2018-05-30 15:50 | Day surgery (SDC) | payer OTHER ==
[2018-05-30] MEDS ORDERED: LR 1,000 ML IV ONE (16:03)
[2018-05-30] MEDS ORDERED: BUPIVACAINE 0.5% 30 ML SDV ONE (16:09)
--- NOTE | 2018-05-30 16:50 | PDHPUP ---
History & Physical Update H&P update statement: This history and physical update is based on an assessment of the patient which was completed after admission or registration (within 24 hours), but prior to the surgery/procedure. H&P update: H&P reviewed & patient examined, no change in patient's condition since H&P completed
[2018-05-30] MEDS ORDERED: ceFAZolin 2 GM/DEXTROSE 100 ML IV ONE (16:51)
[2018-05-30] MEDS ORDERED: PROPOFOL/EMULSION 500 MG/50 ML BOTTLE IV ONE (17:16)
[2018-05-30] MEDS ORDERED: fentaNYL 100 MCG/2 ML INJ ONE (17:18)
[2018-05-30] MEDS ORDERED: MIDAZOLAM 2 MG/2 ML VIAL ONE (17:20)
[2018-05-30] MEDS ORDERED: MIDAZOLAM 2 MG/2 ML VIAL IVP ONE (17:37)
--- NOTE | 2018-05-30 17:42 | PDANEPAE ---
ANE History of Present Illness 72 year old female with history of bipolar depression for K wire for 5th proximal phalanx fracture. ANE Past Medical History - Cardiovascular History Hx Hypertension: No Hx Arrhythmias: No Hx Chest Pain: No Hx Coronary Artery / Peripheral Vascular Disease: No Hx CHF / Valvular Disease: No Hx Palpitations: No - Pulmonary History Hx COPD: No Hx Asthma/Reactive Airway Disease: No Hx Recent Upper Respiratory Infection: No Hx Oxygen in Use at Home: No Hx Sleep Apnea: No - Neurologic History Hx Cerebrovascular Accident: No Hx Seizures: No Hx Dementia: No - Endocrine History Hx Diabetes: No - Renal History Hx Renal Disorders: Yes Renal History Comment: one kidney. 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 ANE Review of Systems Review of systems is: negative Review of Systems: - Exercise capacity METS (RN): 6 METS ANE Patient History - Allergies Allergies/Adverse Reactions: bee venom protein (honey bee) Allergy (Verified 05/07/18 04:25) - Home Medications Home Medications: Levothyroxine Sodium 05/30/18 [Last Taken 05/30/18] Seroquel 200 mg (*) 05/30/18 [Last Taken 05/29/18] Tylenol 05/30/18 [Last Taken 05/30/18 12:00] Venlafaxine 25MG (*) 50 mg 05/30/18 [Last Taken 05/30/18] - NPO status NPO Since - Liquids (Date): 05/30/18 NPO Since - Liquids (Time): 12:30 NPO Since - Solids (Date): 05/30/18 NPO Since - Solids (Time): 08:00 - Smoking Hx Smoking Status: Never smoked ANE Labs/Vital Signs - Vital Signs Blood Pressure: 117/73 Heart Rate: 57 Respiratory Rate: 16 O2 Sat (%): 91 Height: 167.64 cm Weight: 58.967 kg ANE Physical Exam - Airway Neck exam: FROM Mallampati Score: Class 1 Mouth exam: normal dental/mouth exam - Pulmonary Pulmonary: no respiratory distress - Cardiovascular Cardiovascular: regular rate and rhythym - ASA Status ASA Status: II ANE Anesthesia Plan Anesthesia Plan: MAC
[2018-05-30] MEDS ORDERED: ONDANSETRON 4 MG/2 ML VIAL IVP PRN (17:56)
[2018-05-30] MEDS ORDERED: PROMETHAZINE HCL 25 MG/ML INJ IVP PRN (17:56)
[2018-05-30] MEDS ORDERED: oxyCODONE IR 5 MG TAB PO PRN (17:56)
[2018-05-30] MEDS ORDERED: fentaNYL 100 MCG/2 ML INJ IVP PRN (17:56)
[2018-05-30] MEDS ORDERED: PHENYLEPHRINE HCL 100 MCG/ML SYR IVP PRN (17:56)
[2018-05-30] MEDS ORDERED: DEXAMETHASONE 4 MG/ML VIAL IVP PRN (17:56)
[2018-05-30] MEDS ORDERED: NALOXONE HCL 0.4 MG/ML INJ IVP PRN (17:56)
--- NOTE | 2018-05-30 18:08 | POSTANESTH ---
Post Anesthetic Evaluation Cardiovascular Status: Normal, Stable Respiratory Status: Normal, Stable Level of Consciousness/Mental Status: Mildly Sleepy, Arousable Pain Control: Adequate, Prn Tx Ordered Nausea/Vomiting Control: Adequate, Prn Tx Ordered Complications Possibly Related to Anesthesia: None Noted
[2018-05-30 19:31] VITALS: BP 123/78
--- NOTE | 2018-05-30 20:19 | GOP ---
[f rep st] OPERATIVE REPORT DATE OF OPERATION: 05/30/2018 SURGEON: Jeremias Alamo MD ANESTHESIA: MAC plus local. Local was performed by fl, 0.5% Marcaine plain, 10 cc. PREOPERATIVE DIAGNOSIS: Left small finger extra-articular angulated proximal phalanx base fracture. POSTOPERATIVE DIAGNOSIS: Left small finger extra-articular angulated proximal phalanx base fracture. PROCEDURE PERFORMED: Left small finger proximal phalanx extra-articular fracture closed reduction and percutaneous pinning. FINDINGS: ESTIMATED BLOOD LOSS: 1 cc. INDICATIONS: The patient was seen by me in clinic yesterday after presenting to Urgent Care for a fall. Immediately after the fall, she noticed immediate pain and deformity of the left small finger. She was seen at Urgent Care. An x -ray was taken, which showed a markedly angulated left small finger extra- articular fracture at the base that was angulated at about 45 degrees dorsally. This degree of angulation is unacceptable for closed treatment and this is also an unstable type fracture pattern and thus, a closed reduction and pinning is indicated. We discussed the risks and benefits. Risks include pain, bleeding, infection, damage to surrounding structures, stiffness, weakness, delayed union, nonunion, need for further surgery. She understood these risks and wished to proceed. DESCRIPTION OF PROCEDURE: The patient was seen in preoperative holding area. She was given the opportunity to ask any questions. All questions were answered. Consent was signed. Surgical site was marked. She was transferred to operative suite. Care was taken to pad all bony prominences on the gurney. Time-out was called including surgical nurse and anesthesia teams confirming the surgical site and procedure to be performed. The left upper extremity was prepped and draped in the usual sterile fashion. This was after I performed the local anesthetic. At this point, we then placed the finger on a mini C-arm. I placed a small K-wire to the proximal phalanx base on the ulnar aspect, just short of the fracture line and then I flexed the fracture down to reduce it. Then, I passed the K-wire into the far cortex, checked my reduction. I was very happy with the reduction. I took another K- wire, same size, then passed it in a cross-type fashion, again from the ulnar cortex into the other corner of the base, and I was very happy with this position. I pulled the wires back. They were bent and cut short. Checked fluoroscopic images and I had achieve anatomic reduction. I was very happy with it. I checked the stability of the fracture under live fluoroscopy, and it was stable. A sterile dressing was placed. An ulnar gutter splint was placed. Patient tolerated procedure well. The patient was then taken to the PACU in stable condition. IMPLANTS USED: K-wires. POSTOPERATIVE CONDITION: Stable. POSTOPERATIVE PLAN: The patient will follow up in a week. We will pattern changer to a TKO splint. Will plan the removal of the K-wires at about 3 to 4 weeks. /[id number]/MODL MTDD
== END 2018-05-30 20:05 | disposition home or self-care (01) ==
LOC: FSGY 15:50
PROVIDERS: ATTEND Orthopaedic Surgery Hand Surgery
PROC: 0PSV34Z Reposition Left Finger Phalanx with Internal Fixation Device, Percutaneous Approach (ICD-10-PCS; principal; 2018-05-30 17:15)
DX: S62.617A Displaced fracture of proximal phalanx of left little finger, initial encounter for closed fracture (principal); W19.XXXA Unspecified fall, initial encounter; Y92.9 Unspecified place or not applicable; Y93.9 Activity, unspecified; Y99.9 Unspecified external cause status
CPT/HCPCS: C1713; J0690; J2250; J2704; J3010

== ENCOUNTER → 2018-06-07 | Outpatient (CLI) | payer OTHER | LOC: BMCIMAGING 15:30 | PROVIDERS: ATTEND Orthopaedic Surgery Hand Surgery | DX: M79.642 Pain in left hand (principal) ==

== ENCOUNTER → 2018-07-03 | Outpatient (CLI) | payer OTHER | LOC: BMCIMAGING 14:55 | PROVIDERS: ATTEND Orthopaedic Surgery Hand Surgery | DX: S62.617D Displaced fracture of proximal phalanx of left little finger, subsequent encounter for fracture with routine healing (principal); S62.627D Displaced fracture of middle phalanx of left little finger, subsequent encounter for fracture with routine healing ==